=== PATIENT | male | born 1990 | race Caucasian/White ===

== ENCOUNTER 2021-02-07 12:47 | Inpatient (IN) | payer BC ==
[2021-02-07] MEDS ORDERED: Sodium Chloride 0.9% 10 ML Syringe FLUSH PRN (13:27)
[2021-02-07] MEDS ORDERED: Ibuprofen 600 MG Tab PO ONE (13:27)
--- NOTE | 2021-02-07 13:37 | EDM.PDOC ---
ED HPI GENERAL MEDICAL PROBLEM - General Chief Complaint: Respiratory Problem Stated Complaint: COVID+ SOB Time Seen by Provider: 02/07/21 13:02 Source of Information: Reports: Patient History Limitations: Reports: No Limitations - History of Present Illness INITIAL COMMENTS - FREE TEXT/NARRATIVE: 30-year-old male presents the emergency department with complaints of a cough with approximately the last 2 weeks. He states he went to the walk-in clinic 4 days ago and was diagnosed with Covid. He states at that time he was started on an albuterol inhaler as well as prednisone to be taken daily. He states the cough and shortness of breath and body aches have progressively gotten worse. He also complains of nausea however he has not had any vomiting. Appetite has been decreased. Denies any urinary symptoms. Has been taking Tylenol for his fever and body aches. Last dose was taken around noon today. Denies any smoking history and states he is otherwise healthy. He does not take any prescription medications. Generalized Pain Score (Numeric/FACES): 4 - Related Data Allergies Allergy/AdvReac Type Severity Reaction Status Date / Time No Known Allergies Allergy Verified 02/07/21 13:02 Home Meds: Home Meds Albuterol [Proventil HFA] 1 - 2 puff INH ASDIRECTED PRN 02/07/21 [History] Aspirin [Ecotrin EC] 325 mg PO DAILY #20 tab.ec 02/11/21 [Rx] Cholecalciferol (Vitamin D3) [Vitamin D3] 5,000 unit PO DAILY #20 cap 02/11/21 [Rx] Zinc Sulfate [Zincate] 220 mg PO DAILY #20 cap 02/11/21 [Rx] dexAMETHasone [Dexamethasone] 6 mg PO DAILY #5 tablet 02/11/21 [Rx] Past Medical History HEENT History: Reports: Impaired Vision Other HEENT History: wears eyeglasses. Respiratory History: Reports: Other (See Below) Other Respiratory History: COVID - Infectious Disease History Infectious Disease History: Reports: Chicken Pox, Novel Coronavirus Social & Family History - Tobacco Use Tobacco Use Status *Q: Never Tobacco User Second Hand Smoke Exposure: No - Caffeine Use Caffeine Use: Reports: None - Recreational Drug Use Recreational Drug Use: No ED ROS GENERAL - Review of Systems Review Of Systems: Comprehensive ROS is negative, except as noted in HPI. ED EXAM, GENERAL - Physical Exam Exam: See Below Exam Limited By: No Limitations General Appearance: Alert, WD/WN, Mild Distress Ears: Normal External Exam, Hearing Grossly Normal Nose: Normal Inspection Throat/Mouth: Normal Inspection, Normal Lips, Normal Voice, No Airway Compromise Head: Atraumatic Neck: Normal Inspection, Supple Respiratory/Chest: No Accessory Muscle Use, Respiratory Distress, Decreased Breath Sounds, Crackles (Right middle and lower lobe and left lower lobe) Cardiovascular: Normal Peripheral Pulses, Regular Rate, Rhythm, No Edema, No Murmur Peripheral Pulses: 2+: Radial (L), Radial (R) GI/Abdominal: Normal Bowel Sounds, Soft, Non-Tender, No Distention (Male) Exam: Deferred Rectal (Males) Exam: Deferred Back Exam: Normal Inspection Extremities: Normal Inspection, Normal Range of Motion, Non-Tender, No Pedal Edema, Normal Capillary Refill Neurological: Alert, Oriented, Normal Cognition Psychiatric: Normal Affect, Normal Mood Skin Exam: Warm, Intact, No Rash, Diaphoretic. No: Normal Color (Flushed) Lymphatic: No Adenopathy #1 Interpretation EKG Date: 02/07/21 Time: 13:02 Rhythm: NSR Rate (Beats/Min): 113 [place]: Normal P-Wave: Present QRS: Normal ST-T: Normal QT: Normal Comparison: NA - No Prior EKG EKG Interpretation Comments: Per Dr. Alas interpretation: Sinus tachycardia at 113 bpm; RSR prime in V1 or V2, probable normal variant Course - Vital Signs Text/Narrative:: As stated above, patient presents with worsening Covid symptoms. States was diagnosed 4 days ago however has had symptoms for 2 weeks time. Physical exam reveals a ill-appearing obese male. Cheeks are flushed. He is on 2 L of oxygen per nasal cannula with O2 saturations at 93%. O2 saturations at the time of triage were 86% on room air. Lung sounds reveal crackles noted to the right middle and lower lobe as well as the left lower lobe. Patient has a paroxysmal nonproductive cough. Will obtain lab studies to include a CBC, CMP, C-reactive protein, magnesium, and a D-dimer. We will also obtain a portable chest x-ray and an EKG. Will medicate the patient with ibuprofen 600 mg for fever as it was 100.0 at the time of my exam. Patient is tachycardic with a heart rate of 130 likely due to fever and tachypneic with respiratory rate of 32. Last Recorded V/S: Last Vital Signs Temp 98.2 F 02/11/21 06:10 Pulse 77 02/11/21 06:10 Resp 18 02/11/21 06:10 BP 122/62 02/11/21 06:10 Pulse Ox 91 L 02/11/21 06:10 - Orders/Labs/Meds Orders: Medication Orders Acetaminophen (Acetaminophen 325 Mg Tab) 650 mg PO Q4H PRN PRN Reason: Pain (Mild 1-3)/fever Last Admin: 02/09/21 12:32 Dose: 650 mg Documented by: ARAMIS Albuterol (Albuterol 6.7 Gm Inhaler) 0 gm INH ASDIRECTED PRN PRN Reason: Wheezing Albuterol/Ipratropium (Albuterol/Ipratropium 3.0-0.5 Mg/3 Ml Neb Soln) 3 ml NEB Q4HRRT PRN PRN Reason: Shortness of Breath Last Admin: 02/10/21 14:29 Dose: 3 ml Documented by: Admin: 02/10/21 09:54 Dose: 3 ml Documented by: Admin: 02/09/21 16:45 Dose: 3 ml Documented by: Admin: 02/09/21 09:23 Dose: 3 ml Documented by: Admin: 02/08/21 20:28 Dose: 3 ml Documented by: Admin: 02/08/21 16:07 Dose: 3 ml Documented by: Admin: 02/07/21 20:22 Dose: 3 ml Documented by: GREGORIA Ascorbic Acid (Ascorbic Acid 500 Mg Tab) 500 mg PO BID FRANCISCO J Last Admin: 02/11/21 08:56 Dose: 500 mg Documented by: Admin: 02/10/21 21:19 Dose: 500 mg Documented by: Admin: 02/10/21 09:30 Dose: 500 mg Documented by: Admin: 02/09/21 22:19 Dose: 500 mg Documented by: Admin: 02/09/21 08:53 Dose: 500 mg Documented by: Admin: 02/08/21 22:07 Dose: 500 mg Documented by: Admin: 02/08/21 10:20 Dose: 500 mg Documented by: Admin: 02/07/21 20:38 Dose: 500 mg Documented by: IRIS Aspirin (Aspirin 325 Mg Tab.Ec) 325 mg PO DAILY [facility] Last Admin: 02/11/21 09:42 Dose: 325 mg Documented by: ARAMIS Benzonatate (Benzonatate 100 Mg Cap) 200 mg PO Q8H PRN PRN Reason: Cough Last Admin: 02/07/21 20:38 Dose: 200 mg Documented by: IIRS Cholecalciferol (Cholecalciferol (Vitamin D3) 5,000 Unit Cap) 5,000 unit PO DAILY [facility] Last Admin: 02/11/21 08:56 Dose: 5,000 unit Documented by: Admin: 02/10/21 09:30 Dose: 5,000 unit Documented by: Admin: 02/09/21 08:53 Dose: 5,000 unit Documented by: Admin: 02/08/21 11:58 Dose: 5,000 unit Documented by: AMELIA Dexamethasone (Dexamethasone 4 Mg Tab) 6 mg PO DAILY [facility] Stop: 02/16/21 09:01 Last Admin: 02/11/21 08:56 Dose: 6 mg Documented by: ARAMIS Enoxaparin Sodium (Enoxaparin 40 Mg/0.4 Ml Syringe) 40 mg SUBCUT DAILY [facility] Last Admin: 02/11/21 08:59 Dose: Not Given Documented by: Admin: 02/10/21 09:30 Dose: 40 mg Documented by: Admin: 02/09/21 08:54 Dose: 40 mg Documented by: Admin: 02/08/21 10:21 Dose: 40 mg Documented by: SHALA Famotidine (Famotidine 20 Mg Tab) 20 mg PO BID [facility] Last Admin: 02/11/21 08:56 Dose: 20 mg Documented by: Admin: 02/10/21 21:19 Dose: 20 mg Documented by: Admin: 02/10/21 09:30 Dose: 20 mg Documented by: Admin: 02/09/21 22:18 Dose: 20 mg Documented by: Admin: 02/09/21 08:53 Dose: 20 mg Documented by: Admin: 02/08/21 22:07 Dose: 20 mg Documented by: Admin: 02/08/21 10:19 Dose: 20 mg Documented by: Admin: 02/07/21 20:38 Dose: 20 mg Documented by: IRIS Guaifenesin (Guaifenesin 600 Mg Tab.Er) 600 mg PO BID [facility] Last Admin: 02/11/21 08:56 Dose: 600 mg Documented by: Admin: 02/10/21 21:19 Dose: 600 mg Documented by: Admin: 02/10/21 09:30 Dose: 600 mg Documented by: Admin: 02/09/21 22:19 Dose: 600 mg Documented by: Admin: 02/09/21 08:53 Dose: 600 mg Documented by: Admin: 02/08/21 22:08 Dose: 600 mg Documented by: Admin: 02/08/21 10:20 Dose: 600 mg Documented by: Admin: 02/07/21 20:38 Dose: 600 mg Documented by: IRIS Guaifenesin/Dextromethorphan (Guaifenesin/Dextromethorphan 100-10 Mg/5 Ml Soln 5 Ml Cup) 10 ml PO TID@0700,1400,2100 [facility] Admin: 02/11/21 06:06 Dose: 10 ml Documented by: Admin: 02/10/21 21:19 Dose: 10 ml Documented by: Admin: 02/10/21 14:16 Dose: 10 ml Documented by: Admin: 02/10/21 06:30 Dose: 10 ml Documented by: Admin: 02/09/21 22:20 Dose: 10 ml Documented by: Admin: 02/09/21 13:31 Dose: Not Given Documented by: Admin: 02/09/21 12:32 Dose: 10 ml Documented by: Admin: 02/09/21 06:59 Dose: 10 ml Documented by: Admin: 02/08/21 22:08 Dose: 10 ml Documented by: Admin: 02/08/21 14:40 Dose: 10 ml Documented by: FAHYHEA Remdesivir 100 mg/ Sodium (Chloride) 250 mls @ 250 mls/hr IV ONETIME ONE Stop: 02/11/21 12:59 Melatonin (Melatonin 3 Mg Tab) 6 mg PO BEDTIME PRN PRN Reason: Insomnia Last Admin: 02/10/21 21:19 Dose: 6 mg Documented by: Admin: 02/08/21 22:13 Dose: 6 mg Documented by: Admin: 02/07/21 20:38 Dose: 6 mg Documented by: IRIS Temazepam (Temazepam 15 Mg Cap) 15 mg PO BEDTIME PRN PRN Reason: Insomnia Last Admin: 02/09/21 22:24 Dose: 15 mg Documented by: KEISHA Zinc Sulfate (Zinc Sulfate 220 Mg Cap) 220 mg PO DAILY FRANCISCO J Last Admin: 02/11/21 08:56 Dose: 220 mg Documented by: Admin: 02/10/21 09:30 Dose: 220 mg Documented by: Admin: 02/09/21 08:53 Dose: 220 mg Documented by: Admin: 02/08/21 10:20 Dose: 220 mg Documented by: SHALA Labs: Laboratory Tests 02/07/21 02/07/21 02/07/21 Range/Units 14:00 14:00 14:00 WBC 4.71 (4.23-9.07) K/mm3 RBC 4.65 (4.63-6.08) M/mm3 Hgb 14.0 D (13.7-17.5) gm/dl Hct 42.4 (40.1-51.0) % MCV 91.2 D (79.0-92.2) fl MCH 30.1 (25.7-32.2) pg MCHC 33.0 (32.2-35.5) g/dl RDW Std Deviation 42.7 (35.1-43.9) fL Plt Count 166 (163-337) K/mm3 MPV 11.1 (9.4-12.3) fl Neut % (Auto) 80.7 H (34.0-67.9) % Lymph % (Auto) 11.3 L (21.8-53.1) % [place] % (Auto) 7.2 (5.3-12.2) % Eos % (Auto) 0 L (0.8-7.0) Baso % (Auto) 0.2 (0.1-1.2) % Neut # (Auto) 3.80 (1.78-5.38) K/mm3 Lymph # (Auto) 0.53 L (1.32-3.57) K/mm3 [place] # (Auto) 0.34 (0.30-0.82) K/mm3 Eos # (Auto) 0.00 L (0.04-0.54) K/mm3 Baso # (Auto) 0.01 (0.01-0.08) K/mm3 D-Dimer, Quantitative 1.61 H (0.19-0.50) mg/L Sodium 138 (136-145) mEq/L Potassium 3.6 (3.5-5.1) mEq/L Chloride 101 (98-107) mEq/L Carbon Dioxide 28 D (21-32) mEq/L Anion Gap 12.6 (5-15) BUN 16 (7-18) mg/dL Creatinine 1.2 (0.7-1.3) mg/dL Est Cr Clr Drug Dosing 93.78 mL/min Estimated GFR (MDRD) > 60 (>60) mL/min BUN/Creatinine Ratio 13.3 L (14-18) Glucose 99 (70-99) mg/dL Calcium 8.8 (8.5-10.1) mg/dL Magnesium 1.6 L (1.8-2.4) mg/dL Total Bilirubin 0.4 (0.2-1.0) mg/dL AST 24 (15-37) U/L ALT 24 (16-63) U/L Alkaline Phosphatase 54 (46-116) U/L C-Reactive Protein 17.2 H* (<1.0) mg/dL Total Protein 7.3 (6.4-8.2) g/dl Albumin 3.1 L (3.4-5.0) g/dl Globulin 4.2 gm/dL Albumin/Globulin Ratio 0.7 L (1-2) Meds: Medications Generic Name Dose Route Start Last Admin Trade Name Freq PRN Reason Stop Dose Admin Acetaminophen 650 mg 02/07/21 16:27 02/09/21 12:32 Acetaminophen 325 Mg Tab PO 650 mg Q4H PRN Administration Pain (Mild 1-3)/fever Albuterol 0 gm 02/07/21 16:34 Albuterol 6.7 Gm Inhaler INH ASDIRECTED PRN Wheezing Albuterol/Ipratropium 3 ml 02/07/21 16:36 02/10/21 14:29 Albuterol/Ipratropium 3.0-0.5 Mg/3 Ml Neb Soln NEB 3 ml Q4HRRT PRN Administration Shortness of Breath Ascorbic Acid 500 mg 02/07/21 21:00 02/11/21 08:56 Ascorbic Acid 500 Mg Tab PO 500 mg BID FRANCISCO J Administration Aspirin 325 mg 02/11/21 09:15 02/11/21 09:42 Aspirin 325 Mg Tab.Ec PO 325 mg DAILY FRANCISCO J Administration Benzonatate 200 mg 02/07/21 16:36 02/07/21 20:38 Benzonatate 100 Mg Cap PO 200 mg Q8H PRN Administration Cough Cholecalciferol 5,000 unit 02/08/21 11:15 02/11/21 08:56 Cholecalciferol (Vitamin D3) 5,000 Unit Cap PO 5,000 unit DAILY FRANCISCO J Administration Dexamethasone 6 mg 02/11/21 09:00 02/11/21 08:56 Dexamethasone 4 Mg Tab PO 02/16/21 09:01 6 mg DAILY FRANCISCO J Administration Enoxaparin Sodium 40 mg 02/08/21 09:00 02/11/21 08:59 Enoxaparin 40 Mg/0.4 Ml Syringe SUBCUT Not Given DAILY FRANCISCO J Famotidine 20 mg 02/07/21 21:00 02/11/21 08:56 Famotidine 20 Mg Tab PO 20 mg BID FRANCISCO J Administration Guaifenesin 600 mg 02/07/21 21:00 02/11/21 08:56 Guaifenesin 600 Mg Tab.Er PO 600 mg BID FRANCISCO J Administration Guaifenesin/Dextromethorphan 10 ml 02/08/21 14:00 02/11/21 06:06 Guaifenesin/Dextromethorphan 100-10 Mg/5 Ml Soln 5 Ml Cup PO 10 ml TID@0700,1400,2100 FRANCISCO J Administration Remdesivir 100 mg/ Sodium 250 mls @ 250 mls/hr 02/11/21 12:00 Chloride IV 02/11/21 12:59 ONETIME ONE Melatonin 6 mg 02/07/21 21:00 02/10/21 21:19 Melatonin 3 Mg Tab PO 6 mg BEDTIME PRN Administration Insomnia Temazepam 15 mg 02/09/21 09:56 02/09/21 22:24 Temazepam 15 Mg Cap PO 15 mg BEDTIME PRN Administration Insomnia Zinc Sulfate 220 mg 02/08/21 09:00 02/11/21 08:56 Zinc Sulfate 220 Mg Cap PO 220 mg DAILY FRANCISCO J Administration Discontinued Medications Generic Name Dose Route Start Last Admin Trade Name Freq PRN Reason Stop Dose Admin Dexamethasone 6 mg 02/07/21 17:00 02/10/21 09:30 Dexamethasone 4 Mg Tab PO 02/16/21 09:01 6 mg DAILY FRANCISCO J Administration Dexamethasone 6 mg 02/11/21 12:00 Dexamethasone 4 Mg Tab PO 02/16/21 09:01 DAILY FRANCISCO J Remdesivir 200 mg/ Sodium 250 mls @ 250 mls/hr 02/07/21 17:00 02/07/21 18:00 Chloride IV 02/07/21 17:59 250 mls/hr ONETIME ONE Administration Remdesivir 100 mg/ Sodium 250 mls @ 250 mls/hr 02/08/21 17:00 02/10/21 16:58 Chloride IV 02/11/21 17:59 250 mls/hr Q24H FRANCISCO J Administration Magnesium Sulfate 2 gm/ Premix 50 mls @ 25 mls/hr 02/08/21 16:00 02/08/21 16:11 IV 02/08/21 17:59 25 mls/hr ONETIME ONE Administration Ibuprofen 600 mg 02/07/21 13:27 02/07/21 13:45 Ibuprofen 600 Mg Tab PO 02/07/21 13:28 600 mg ONETIME ONE Administration Sodium Chloride 10 ml 02/07/21 13:27 02/07/21 14:05 Sodium Chloride 0.9% 10 Ml Syringe FLUSH 10 ml ASDIRECTED PRN Administration Keep Vein Open - Re-Assessments/Exams Free Text/Narrative Re-Assessment/Exam: 02/07/21 14:40 Radiologist impression frontal view of the chest: Patchy areas of increased density are scattered throughout both sides of the chest. Heart size and mediastinum are normal. No discrete osseous abnormality is appreciated. Impression: 1. Findings suspicious for diffuse Covid pneumonia. 02/07/21 14:55 Hematology reveals a WBC of 4.71, hemoglobin 14.0, hematocrit 42.4, platelet count 166 Coagulation reveals a D-dimer of 1.61 Chemistry reveals a sodium of 138, potassium 3.6, anion gap 12.6, BUN 16, creat inine 1.2, GFR greater than 60, magnesium 1.6, C-reactive protein 17.2 02/07/21 15:00 To the patient's worsening symptoms and oxygen needs I do feel the patient needs to be admitted in the hospital. I have spoken to the hospitalist, Dr. Rocha and he agrees to accept the patient into his service. Patient is agreeable to this plan. Departure - Departure Time of Disposition: 16:05 Disposition: Admitted As Inpatient 67 Condition: Good Clinical Impression: Pneumonia due to severe acute respiratory syndrome coronavirus 2 (SARS-CoV-2) - Discharge Information Sepsis Event Note (ED) - Evaluation Sepsis Screening Result: No Definite Risk
--- NOTE | 2021-02-07 13:55 | CR ---
Chest: Frontal view of the chest was obtained. Comparison: No prior chest imaging is available. Patchy areas of increased density are scattered throughout both sides of the chest. Heart size and mediastinum are normal. No discrete osseous abnormality is appreciated. Impression: 1. Findings suspicious for diffuse COVID pneumonia. Diagnostic code #3
[2021-02-07] MEDS ORDERED: Acetaminophen 325 MG Tab PO PRN (16:27)
[2021-02-07] MEDS ORDERED: Albuterol 6.7 GM Inhaler INH PRN (16:34)
[2021-02-07] MEDS ORDERED: Benzonatate 100 MG Cap PO PRN (16:36)
--- NOTE | 2021-02-07 16:40 | PCM.HP.2 ---
H&P History of Present Illness - General Date of Service: 02/07/21 Admit Problem/Dx: Admission Diagnosis/Problem Admission Diagnosis/Problem Hypoxemia - History of Present Illness Initial Comments - Free Text/Narative: 30-year-old male with history of cough and body aches for last 2 weeks presents to the emergency department with worsening shortness of breath, cough, and fever. Patient was diagnosed with COVID-19 on January after having worsening shortness of breath and cough. He was placed on albuterol and prednisone as an outpatient. Patient is unvaccinated. As stated above he star andrea having symptoms 2 weeks ago progressively worsened to the point of them being severe today. He has had some nausea and decreased appetite but no diarrhea, vomiting, or constipation. He has been using Tylenol for his fever and body aches. He denies any history of tobacco. He occasionally drinks alcohol. No illicit drug use. His was positive for Covid approximately 1 month ago. He has had some decreased sense of smell. On presentation to the emergency department his oxygen saturations were in the mid 80s on room air. He was placed on 2 L nasal cannula and his oxygen saturations did go up to the low 90s. Temperature was 100.0 and he received ibuprofen 600 mg. Chest x-ray was consistent with Covid pneumonia. Initially he was tachycardic and tachypneic. Patient states he improved on oxygen. White count was 4.71, D-dimer 1.6, CRP 17.2, normal renal function and electrolytes except for magnesium of 1.6. Albumin was low at 3.1. Generalized Pain Score (Numeric/FACES): 4 - Related Data Allergies/Adverse Reactions: Allergies Allergy/AdvReac Type Severity Reaction Status Date / Time No Known Allergies Allergy Verified 02/07/21 13:02 Home Medications: Home Meds Albuterol [Proventil HFA] 1 - 2 puff INH ASDIRECTED PRN 02/07/21 [History] predniSONE [Prednisone] 20 mg PO DAILY 02/07/21 [History] Past Medical History HEENT History: Reports: Impaired Vision Other HEENT History: wears eyeglasses. Respiratory History: Reports: Other (See Below) Other Respiratory History: COVID - Infectious Disease History Infectious Disease History: Reports: Chicken Pox, Novel Coronavirus Social & Family History - Tobacco Use Tobacco Use Status *Q: Never Tobacco User Second Hand Smoke Exposure: No - Caffeine Use Caffeine Use: Reports: None - Recreational Drug Use Recreational Drug Use: No H&P Review of Systems - Review of Systems: Review Of Systems: Comprehensive ROS is negative, except as noted in HPI. Exam - Exam Exam: See Below - Vital Signs Vital Signs: Last Vital Signs Temp 97.3 F 02/07/21 16:16 Pulse 88 02/07/21 16:16 Resp 20 02/07/21 16:16 BP 128/66 02/07/21 16:16 Pulse Ox 90 L 02/07/21 16:16 Weight: 252 lb 14.4 oz - Exam Quality Assessment: Supplemental Oxygen General: Alert, Oriented HEENT: Conjunctiva Clear, Mucosa Moist & [place], Nares Patent, Normal Nasal Septum Neck: Supple, Trachea Midline, 2 Lungs: Crackles (Throughout both lung fine worse in the bases). No: Normal Respiratory Effort (Increased rate and effort) Cardiovascular: Regular Rate, Normal S1, Normal S2, Tachycardia GI/Abdominal Exam: Normal Bowel Sounds, Soft, Non-Tender, No Organomegaly, No Distention, No Abnormal Bruit, No Mass Extremities: Normal Inspection, Normal Range of Motion, Non-Tender, No Pedal Edema, Normal Capillary Refill Peripheral Pulses: 2+: Posterior Tibial (L), Posterior Tibial (R), Dorsalis Pedis (L), Dorsalis Pedis (R) Skin: Warm, Dry, Intact Neurological: Cranial Nerves Intact Neuro Extensive - Mental Status: Alert, Oriented x3, Normal Mood/Affect, Normal Cognition, Memory Intact Neuro Extensive - Motor, Sensory, Reflexes: CN II-XII Intact Psychiatric: Alert, Normal Affect, Normal Mood - Patient Data Lab Results Last 24 hrs: Laboratory Results - last 24 hr 02/07/21 02/07/21 02/07/21 Range/Units 14:00 14:00 14:00 WBC 4.71 (4.23-9.07) K/mm3 RBC 4.65 (4.63-6.08) M/mm3 Hgb 14.0 D (13.7-17.5) gm/dl Hct 42.4 (40.1-51.0) % MCV 91.2 D (79.0-92.2) fl MCH 30.1 (25.7-32.2) pg MCHC 33.0 (32.2-35.5) g/dl RDW Std Deviation 42.7 (35.1-43.9) fL Plt Count 166 (163-337) K/mm3 MPV 11.1 (9.4-12.3) fl Neut % (Auto) 80.7 H (34.0-67.9) % Lymph % (Auto) 11.3 L (21.8-53.1) % [place] % (Auto) 7.2 (5.3-12.2) % Eos % (Auto) 0 L (0.8-7.0) Baso % (Auto) 0.2 (0.1-1.2) % Neut # (Auto) 3.80 (1.78-5.38) K/mm3 Lymph # (Auto) 0.53 L (1.32-3.57) K/mm3 [place] # (Auto) 0.34 (0.30-0.82) K/mm3 Eos # (Auto) 0.00 L (0.04-0.54) K/mm3 Baso # (Auto) 0.01 (0.01-0.08) K/mm3 D-Dimer, Quantitative 1.61 H (0.19-0.50) mg/L Sodium 138 (136-145) mEq/L Potassium 3.6 (3.5-5.1) mEq/L Chloride 101 (98-107) mEq/L Carbon Dioxide 28 D (21-32) mEq/L Anion Gap 12.6 (5-15) BUN 16 (7-18) mg/dL Creatinine 1.2 (0.7-1.3) mg/dL Est Cr Clr Drug Dosing 93.78 mL/min Estimated GFR (MDRD) > 60 (>60) mL/min BUN/Creatinine Ratio 13.3 L (14-18) Glucose 99 (70-99) mg/dL Calcium 8.8 (8.5-10.1) mg/dL Magnesium 1.6 L (1.8-2.4) mg/dL Total Bilirubin 0.4 (0.2-1.0) mg/dL AST 24 (15-37) U/L ALT 24 (16-63) U/L Alkaline Phosphatase 54 (46-116) U/L C-Reactive Protein 17.2 H* (<1.0) mg/dL Total Protein 7.3 (6.4-8.2) g/dl Albumin 3.1 L (3.4-5.0) g/dl Globulin 4.2 gm/dL Albumin/Globulin Ratio 0.7 L (1-2) Result Diagrams: 02/07/21 14:00 02/07/21 14:00 Sepsis Event Note - Evaluation Sepsis Screening Result: No Definite Risk - Focused Exam Vital Signs: Vital Signs Temp Temp Pulse Pulse Resp BP BP 02/07/21 16:16 97.3 F 88 20 128/66 02/07/21 16:05 97.8 F 22 H 122/73 02/07/21 13:45 99.1 F 02/07/21 12:55 99.7 F 130 H 32 H 121/74 Pulse Ox 02/07/21 16:16 90 L 02/07/21 16:05 98 02/07/21 13:45 02/07/21 12:55 87 L - Problem List (1) Hypoxemia SNOMED Code(s): 043382703 ICD Code: R09.02 - HYPOXEMIA Status: Acute Current Visit: Yes (2) Pneumonia due to severe acute respiratory syndrome coronavirus 2 (SARS-CoV-2) SNOMED Code(s): 663811634432093721 ICD Code: U07.1 - COVID-19; J12.82 - PNEUMONIA DUE TO CORONAVIRUS DISEASE 2019 Status: Acute Current Visit: Yes Problem List Initiated/Reviewed/Updated: Yes Orders Last 24hrs: Active Orders 24 hr Category Date Time Status Admission Status [Patient Status] [ADT] Routine ADT 02/07/21 15:27 Active Nurse Communication: Isolation [RC] ASDIRECTED Care 02/07/21 16:30 Ordered Oxygen Therapy [RC] PRN Care 02/07/21 16:28 Ordered Positioning, Patient [RC] ASDIRECTED Care 02/07/21 16:29 Ordered RT Aerosol Therapy [RC] ASDIRECTED Care 02/07/21 16:36 Ordered RT Post Treatment Assessment [RC] Click to Edit Care 02/07/21 16:35 Ordered RT Pre-Treatment Assessment [RC] Click to Edit Care 02/07/21 16:35 Ordered Up ad Misty [RC] ASDIRECTED Care 02/07/21 16:27 Ordered VTE/DVT Education [RC] PER UNIT ROUTINE Care 02/07/21 16:28 Ordered Vital Signs [RC] Q4H Care 02/07/21 16:28 Ordered Regular Diet [DIET] Diet 02/07/21 Dinner Ordered C-REACTIVE PROTEIN [CHEM] AM Lab 02/08/21 05:11 Ordered C-REACTIVE PROTEIN [CHEM] AM Lab 02/09/21 05:11 Ordered C-REACTIVE PROTEIN [CHEM] AM Lab 02/10/21 05:11 Ordered C-REACTIVE PROTEIN [CHEM] AM Lab 02/11/21 05:11 Ordered CBC WITH AUTO DIFF [HEME] AM Lab 02/08/21 05:11 Ordered CBC WITH AUTO DIFF [HEME] AM Lab 02/09/21 05:11 Ordered CBC WITH AUTO DIFF [HEME] AM Lab 02/10/21 05:11 Ordered CBC WITH AUTO DIFF [HEME] AM Lab 02/11/21 05:11 Ordered CMP [COMPREHENSIVE METABOLIC PN,CMP] [CHEM] AM Lab 02/08/21 05:11 Ordered CMP [COMPREHENSIVE METABOLIC PN,CMP] [CHEM] AM Lab 02/09/21 05:11 Ordered CMP [COMPREHENSIVE METABOLIC PN,CMP] [CHEM] AM Lab 02/10/21 05:11 Ordered CMP [COMPREHENSIVE METABOLIC PN,CMP] [CHEM] AM Lab 02/11/21 05:11 Ordered DD [D-DIMER QUANTITATIVE] [COAG] Q48H Lab 02/09/21 05:11 Ordered DD [D-DIMER QUANTITATIVE] [COAG] Q48H Lab 02/11/21 05:11 Ordered MAGNESIUM [CHEM] AM Lab 02/08/21 05:11 Ordered MAGNESIUM [CHEM] AM Lab 02/09/21 05:11 Ordered MAGNESIUM [CHEM] AM Lab 02/10/21 05:11 Ordered MAGNESIUM [CHEM] AM Lab 02/11/21 05:11 Ordered PHOSPHORUS [CHEM] AM Lab 02/08/21 05:11 Ordered Acetaminophen [TylenoL] Med 02/07/21 16:27 Ordered 650 mg PO Q4H PRN Albuterol [Proventil HFA] Med 02/07/21 16:34 Ordered 2 puff INH ASDIRECTED PRN Albuterol/Ipratropium [DuoNeb 3.0-0.5 MG/3 ML] Med 02/07/21 16:36 Ordered 3 ml NEB Q4HRRT PRN Benzonatate [Tessalon Perles] Med 02/07/21 16:36 Ordered 200 mg PO Q8H PRN Enoxaparin [Lovenox] Med 02/08/21 09:00 Ordered 40 mg SUBCUT DAILY Famotidine [Pepcid] Med 02/07/21 21:00 Ordered 20 mg PO BID Melatonin Med 02/07/21 16:37 Ordered 6 mg PO BEDTIME PRN Remdesivir 100 mg Med 02/08/21 16:30 Ordered Sodium Chloride 0.9% [Normal Saline] 100 ml IV Q24H Remdesivir 200 mg Med 02/07/21 16:27 Ordered Sodium Chloride 0.9% [Normal Saline] 250 ml IV ONETIME dexAMETHasone Med 02/07/21 16:30 Ordered 6 mg PO DAILY Isolation [COMM] Stat Oth 02/07/21 16:28 Ordered Saline Lock Insert [OM.PC] Stat Oth 02/07/21 13:27 Ordered Resuscitation Status Routine Resus Stat 02/07/21 16:27 Ordered Medication Orders Acetaminophen (Acetaminophen 325 Mg Tab) 650 mg PO Q4H PRN PRN Reason: Pain (Mild 1-3)/fever Albuterol (Albuterol 6.7 Gm Inhaler) gm INH ASDIRECTED PRN PRN Reason: Wheezing Albuterol/Ipratropium (Albuterol/Ipratropium 3.0-0.5 Mg/3 Ml Neb Soln) 3 ml NEB Q4HRRT PRN PRN Reason: Shortness of Breath Benzonatate (Benzonatate 100 Mg Cap) 200 mg PO Q8H PRN PRN Reason: Cough Dexamethasone (Dexamethasone 4 Mg Tab) 6 mg PO DAILY FRANCISCO J Stop: 02/16/21 09:01 Enoxaparin Sodium (Enoxaparin 40 Mg/0.4 Ml Syringe) 40 mg SUBCUT DAILY FRANCISCO J Famotidine (Famotidine 20 Mg Tab) 20 mg PO BID FRANCISCO J Remdesivir 200 mg/ Sodium (Chloride) 250 mls @ 250 mls/hr IV ONETIME ONE Stop: 02/07/21 16:28 Remdesivir 100 mg/ Sodium (Chloride) 100 mls @ 100 mls/hr IV Q24H [facility]ANCISCO J Stop: 02/11/21 17:29 Melatonin (Melatonin 3 Mg Tab) 6 mg PO BEDTIME PRN PRN Reason: Insomnia Assessment/Plan Comment:: 30-year-old with approximate 2-week history of respiratory infection consistent with COVID-19. Diagnosed on January Pneumonia secondary to COVID-19 Respiratory failure/hypoxemia Moderate to severe COVID-19 requiring 2 L nasal cannula to keep his oxygen saturations in the low 90s. Patient was unvaccinated for COVID-19. Risk factors include obesity. Started on albuterol and prednisone on January WBC 4.71, hemoglobin 14.0, platelets 166, D-dimer 1.61, magnesium 1.6, BUN 16, creatinine 1.2, potassium 3.6, sodium 138, CRP 17, Hypomagnesemia Magnesium 1.6 likely secondary to poor oral intake Plan Admit to medical floor FiO2 to keep SPO2 between 88 and 94% Start remdesivir and dexamethasone Follow daily Covid labs Routine COVID-19 inpatient protocol to include proning, I-S, respiratory therapy, etc. Mucinex, Tessalon Perles, Pepcid, vitamin C, zinc, check vitamin D D level and replace as appropriate Magnesium supplementation and follow-up in the morning VTE prophylaxis with Lovenox CODE STATUS: Full code Anticipated length of stay 4 to 5 days. - Mortality Measure Prognosis:: Good
[2021-02-07] MEDS: Dexamethasone 4 MG Tab PO SCH (16:59)
[2021-02-07] MEDS ORDERED: REMDESIVIR 200 MG in Sodium Chloride 0.9% 250 ML IV ONE (17:00)
[2021-02-07] MEDS: Albuterol/Ipratropium 3.0-0.5 MG/3 ML Neb Soln NEB PRN (20:22)
[2021-02-07] MEDS: Famotidine 20 MG Tab PO SCH (20:38)
[2021-02-07] MEDS: Ascorbic Acid 500 MG Tab PO SCH (20:38)
[2021-02-07] MEDS: guaiFENesin 600 MG Tab.ER PO SCH (20:38)
[2021-02-07] MEDS: Melatonin 3 MG Tab PO PRN (20:38)
--- NOTE | 2021-02-08 08:07 | PCM.PN ---
- General Info Date of Service: 02/08/21 Admission Dx/Problem (Free Text): Admission Diagnosis/Problem Admission Diagnosis/Problem Hypoxemia Functional Status: Reports: Pain Controlled, Tolerating Diet, Ambulating, Urinating. Denies: New Symptoms - Review of Systems General: Reports: No Symptoms, Weakness, Fatigue, Malaise. Denies: Fever, Chills HEENT: Reports: No Symptoms. Denies: Headaches, Sore Throat Pulmonary: Reports: Shortness of Breath, Cough, Sputum. Denies: Pleuritic Chest Pain, Wheezing Cardiovascular: Reports: Dyspnea on Exertion. Denies: Chest Pain, Palpitations, Edema Gastrointestinal: Reports: No Symptoms. Denies: Abdominal Pain, Constipation, Diarrhea, Nausea, Vomiting Genitourinary: Reports: No Symptoms. Denies: Pain Musculoskeletal: Reports: No Symptoms Skin: Reports: No Symptoms. Denies: Cyanosis Neurological: Reports: No Symptoms. Denies: Confusion, Dizziness, Headache, Numbness, Pre-Existing Deficit, Seizure, Syncope, Tingling, Difficulty Walking, Gait Disturbance Psychiatric: Reports: No Symptoms - Patient Data Vitals - Most Recent: Last Vital Signs Temp 97.9 F 02/08/21 04:48 Pulse 70 02/08/21 04:48 Resp 20 02/08/21 04:48 BP 118/69 02/08/21 04:48 Pulse Ox 91 L 02/08/21 04:48 Weight - Most Recent: 248 lb I&O - Last 24 Hours: Intake & Output 02/07/21 02/08/21 02/08/21 22:59 06:59 14:59 Intake Total 240 650 Balance 240 650 Lab Results Last 24 Hours: Laboratory Results - last 24 hr 02/07/21 02/07/21 02/07/21 Range/Units 14:00 14:00 14:00 WBC 4.71 (4.23-9.07) K/mm3 RBC 4.65 (4.63-6.08) M/mm3 Hgb 14.0 D (13.7-17.5) gm/dl Hct 42.4 (40.1-51.0) % MCV 91.2 D (79.0-92.2) fl MCH 30.1 (25.7-32.2) pg MCHC 33.0 (32.2-35.5) g/dl RDW Std Deviation 42.7 (35.1-43.9) fL Plt Count 166 (163-337) K/mm3 MPV 11.1 (9.4-12.3) fl Neut % (Auto) 80.7 H (34.0-67.9) % Lymph % (Auto) 11.3 L (21.8-53.1) % [place] % (Auto) 7.2 (5.3-12.2) % Eos % (Auto) 0 L (0.8-7.0) Baso % (Auto) 0.2 (0.1-1.2) % Neut # (Auto) 3.80 (1.78-5.38) K/mm3 Lymph # (Auto) 0.53 L (1.32-3.57) K/mm3 [place] # (Auto) 0.34 (0.30-0.82) K/mm3 Eos # (Auto) 0.00 L (0.04-0.54) K/mm3 Baso # (Auto) 0.01 (0.01-0.08) K/mm3 Manual Slide Review D-Dimer, Quantitative 1.61 H (0.19-0.50) mg/L Sodium 138 (136-145) mEq/L Potassium 3.6 (3.5-5.1) mEq/L Chloride 101 (98-107) mEq/L Carbon Dioxide 28 D (21-32) mEq/L Anion Gap 12.6 (5-15) BUN 16 (7-18) mg/dL Creatinine 1.2 (0.7-1.3) mg/dL Est Cr Clr Drug Dosing 93.78 mL/min Estimated GFR (MDRD) > 60 (>60) mL/min BUN/Creatinine Ratio 13.3 L (14-18) Glucose 99 (70-99) mg/dL Calcium 8.8 (8.5-10.1) mg/dL Phosphorus (2.6-4.7) mg/dL Magnesium 1.6 L (1.8-2.4) mg/dL Total Bilirubin 0.4 (0.2-1.0) mg/dL AST 24 (15-37) U/L ALT 24 (16-63) U/L Alkaline Phosphatase 54 (46-116) U/L C-Reactive Protein 17.2 H* (<1.0) mg/dL Total Protein 7.3 (6.4-8.2) g/dl Albumin 3.1 L (3.4-5.0) g/dl Globulin 4.2 gm/dL Albumin/Globulin Ratio 0.7 L (1-2) 02/08/21 02/08/21 Range/Units 05:55 06:05 WBC 4.12 L (4.23-9.07) K/mm3 RBC 4.74 (4.63-6.08) M/mm3 Hgb 14.1 (13.7-17.5) gm/dl Hct 42.6 (40.1-51.0) % MCV 89.9 (79.0-92.2) fl MCH 29.7 (25.7-32.2) pg MCHC 33.1 (32.2-35.5) g/dl RDW Std Deviation 41.9 (35.1-43.9) fL Plt Count 183 (163-337) K/mm3 MPV 11.2 (9.4-12.3) fl Neut % (Auto) 77.4 H (34.0-67.9) % Lymph % (Auto) 12.4 L (21.8-53.1) % [place] % (Auto) 8.3 (5.3-12.2) % Eos % (Auto) 0 L (0.8-7.0) Baso % (Auto) 0.2 (0.1-1.2) % Neut # (Auto) 3.19 (1.78-5.38) K/mm3 Lymph # (Auto) 0.51 L (1.32-3.57) K/mm3 [place] # (Auto) 0.34 (0.30-0.82) K/mm3 Eos # (Auto) 0.00 L (0.04-0.54) K/mm3 Baso # (Auto) 0.01 (0.01-0.08) K/mm3 Manual Slide Review Normal smear D-Dimer, Quantitative (0.19-0.50) mg/L Sodium 138 (136-145) mEq/L Potassium 4.3 (3.5-5.1) mEq/L Chloride 100 (98-107) mEq/L Carbon Dioxide 25 (21-32) mEq/L Anion Gap 17.3 H (5-15) BUN 15 (7-18) mg/dL Creatinine 1.1 (0.7-1.3) mg/dL Est Cr Clr Drug Dosing 102.31 mL/min Estimated GFR (MDRD) > 60 (>60) mL/min BUN/Creatinine Ratio 13.6 L (14-18) Glucose 108 H (70-99) mg/dL Calcium 8.4 L (8.5-10.1) mg/dL Phosphorus 4.9 H (2.6-4.7) mg/dL Magnesium 1.7 L (1.8-2.4) mg/dL Total Bilirubin 0.3 (0.2-1.0) mg/dL AST 25 (15-37) U/L ALT 26 (16-63) U/L Alkaline Phosphatase 53 (46-116) U/L C-Reactive Protein 18.6 H* (<1.0) mg/dL Total Protein 6.5 (6.4-8.2) g/dl Albumin 3.1 L (3.4-5.0) g/dl Globulin 3.4 gm/dL Albumin/Globulin Ratio 0.9 L (1-2) Med Orders - Current: Current Medications Acetaminophen (Acetaminophen 325 Mg Tab) 650 mg PO Q4H PRN PRN Reason: Pain (Mild 1-3)/fever Albuterol (Albuterol 6.7 Gm Inhaler) 0 gm INH ASDIRECTED PRN PRN Reason: Wheezing Albuterol/Ipratropium (Albuterol/Ipratropium 3.0-0.5 Mg/3 Ml Neb Soln) 3 ml NEB Q4HRRT PRN PRN Reason: Shortness of Breath Last Admin: 02/07/21 20:22 Dose: 3 ml Documented by: Ascorbic Acid (Ascorbic Acid 500 Mg Tab) 500 mg PO BID FRANCISCO J Last Admin: 02/07/21 20:38 Dose: 500 mg Documented by: Benzonatate (Benzonatate 100 Mg Cap) 200 mg PO Q8H PRN PRN Reason: Cough Last Admin: 02/07/21 20:38 Dose: 200 mg Documented by: Dexamethasone (Dexamethasone 4 Mg Tab) 6 mg PO DAILY FRANCISCO J Stop: 02/16/21 09:01 Last Admin: 02/07/21 16:59 Dose: 6 mg Documented by: Enoxaparin Sodium (Enoxaparin 40 Mg/0.4 Ml Syringe) 40 mg SUBCUT DAILY [facility] Famotidine (Famotidine 20 Mg Tab) 20 mg PO BID [facility] Last Admin: 02/07/21 20:38 Dose: 20 mg Documented by: Guaifenesin (Guaifenesin 600 Mg Tab.Er) 600 mg PO BID [facility] Last Admin: 02/07/21 20:38 Dose: 600 mg Documented by: Remdesivir 100 mg/ Sodium (Chloride) 250 mls @ 250 mls/hr IV Q24H [facility]ISCO J Stop: 02/11/21 17:59 Melatonin (Melatonin 3 Mg Tab) 6 mg PO BEDTIME PRN PRN Reason: Insomnia Last Admin: 02/07/21 20:38 Dose: 6 mg Documented by: Zinc Sulfate (Zinc Sulfate 220 Mg Cap) 220 mg PO DAILY [facility] Discontinued Medications Remdesivir 200 mg/ Sodium (Chloride) 250 mls @ 250 mls/hr IV ONETIME ONE Stop: 02/07/21 17:59 Last Admin: 02/07/21 18:00 Dose: 250 mls/hr Documented by: Ibuprofen (Ibuprofen 600 Mg Tab) 600 mg PO ONETIME ONE Stop: 02/07/21 13:28 Last Admin: 02/07/21 13:45 Dose: 600 mg Documented by: Sodium Chloride (Sodium Chloride 0.9% 10 Ml Syringe) 10 ml FLUSH ASDIRECTED PRN PRN Reason: Keep Vein Open Last Admin: 02/07/21 14:05 Dose: 10 ml Documented by: - Exam Quality Assessment: Supplemental Oxygen (2L), DVT Prophylaxis. No: Urine Catheter General: Alert, Oriented, Cooperative, No Acute Distress HEENT: Pupils Equal, Pupils Reactive, Mucous Membr. Moist/[place] Neck: Supple, +2 Carotid Pulse wo Bruit Lungs: Normal Respiratory Effort, Decreased Breath Sounds, Crackles. No: Wheezing Cardiovascular: Regular Rate, Regular Rhythm GI/Abdominal Exam: Normal Bowel Sounds, Soft, Non-Tender, No Distention (Male) Exam: Deferred Back Exam: Normal Inspection, Full Range of Motion Extremities: Normal Inspection, Normal Range of Motion, Non-Tender, No Pedal Edema, Normal Capillary Refill Skin: Warm, Dry, Intact Neurological: No New Focal Deficit Psy/Mental Status: Alert, Normal Affect, Normal Mood - Patient Data Lab Results Last 24 hrs: Laboratory Results - last 24 hr 1102/07/21 02/07/21 Range/Units 14:00 14:00 14:00 WBC 4.71 (4.23-9.07) K/mm3 RBC 4.65 (4.63-6.08) M/mm3 Hgb 14.0 D (13.7-17.5) gm/dl Hct 42.4 (40.1-51.0) % MCV 91.2 D (79.0-92.2) fl MCH 30.1 (25.7-32.2) pg MCHC 33.0 (32.2-35.5) g/dl RDW Std Deviation 42.7 (35.1-43.9) fL Plt Count 166 (163-337) K/mm3 MPV 11.1 (9.4-12.3) fl Neut % (Auto) 80.7 H (34.0-67.9) % Lymph % (Auto) 11.3 L (21.8-53.1) % [place] % (Auto) 7.2 (5.3-12.2) % Eos % (Auto) 0 L (0.8-7.0) Baso % (Auto) 0.2 (0.1-1.2) % Neut # (Auto) 3.80 (1.78-5.38) K/mm3 Lymph # (Auto) 0.53 L (1.32-3.57) K/mm3 [place] # (Auto) 0.34 (0.30-0.82) K/mm3 Eos # (Auto) 0.00 L (0.04-0.54) K/mm3 Baso # (Auto) 0.01 (0.01-0.08) K/mm3 Manual Slide Review D-Dimer, Quantitative 1.61 H (0.19-0.50) mg/L Sodium 138 (136-145) mEq/L Potassium 3.6 (3.5-5.1) mEq/L Chloride 101 (98-107) mEq/L Carbon Dioxide 28 D (21-32) mEq/L Anion Gap 12.6 (5-15) BUN 16 (7-18) mg/dL Creatinine 1.2 (0.7-1.3) mg/dL Est Cr Clr Drug Dosing 93.78 mL/min Estimated GFR (MDRD) > 60 (>60) mL/min BUN/Creatinine Ratio 13.3 L (14-18) Glucose 99 (70-99) mg/dL Calcium 8.8 (8.5-10.1) mg/dL Phosphorus (2.6-4.7) mg/dL Magnesium 1.6 L (1.8-2.4) mg/dL Total Bilirubin 0.4 (0.2-1.0) mg/dL AST 24 (15-37) U/L ALT 24 (16-63) U/L Alkaline Phosphatase 54 (46-116) U/L C-Reactive Protein 17.2 H* (<1.0) mg/dL Total Protein 7.3 (6.4-8.2) g/dl Albumin 3.1 L (3.4-5.0) g/dl Globulin 4.2 gm/dL Albumin/Globulin Ratio 0.7 L (1-2) 02/08/21 02/08/21 Range/Units 05:55 06:05 WBC 4.12 L (4.23-9.07) K/mm3 RBC 4.74 (4.63-6.08) M/mm3 Hgb 14.1 (13.7-17.5) gm/dl Hct 42.6 (40.1-51.0) % MCV 89.9 (79.0-92.2) fl MCH 29.7 (25.7-32.2) pg MCHC 33.1 (32.2-35.5) g/dl RDW Std Deviation 41.9 (35.1-43.9) fL Plt Count 183 (163-337) K/mm3 MPV 11.2 (9.4-12.3) fl Neut % (Auto) 77.4 H (34.0-67.9) % Lymph % (Auto) 12.4 L (21.8-53.1) % [place] % (Auto) 8.3 (5.3-12.2) % Eos % (Auto) 0 L (0.8-7.0) Baso % (Auto) 0.2 (0.1-1.2) % Neut # (Auto) 3.19 (1.78-5.38) K/mm3 Lymph # (Auto) 0.51 L (1.32-3.57) K/mm3 [place] # (Auto) 0.34 (0.30-0.82) K/mm3 Eos # (Auto) 0.00 L (0.04-0.54) K/mm3 Baso # (Auto) 0.01 (0.01-0.08) K/mm3 Manual Slide Review Normal smear D-Dimer, Quantitative (0.19-0.50) mg/L Sodium 138 (136-145) mEq/L Potassium 4.3 (3.5-5.1) mEq/L Chloride 100 (98-107) mEq/L Carbon Dioxide 25 (21-32) mEq/L Anion Gap 17.3 H (5-15) BUN 15 (7-18) mg/dL Creatinine 1.1 (0.7-1.3) mg/dL Est Cr Clr Drug Dosing 102.31 mL/min Estimated GFR (MDRD) > 60 (>60) mL/min BUN/Creatinine Ratio 13.6 L (14-18) Glucose 108 H (70-99) mg/dL Calcium 8.4 L (8.5-10.1) mg/dL Phosphorus 4.9 H (2.6-4.7) mg/dL Magnesium 1.7 L (1.8-2.4) mg/dL Total Bilirubin 0.3 (0.2-1.0) mg/dL AST 25 (15-37) U/L ALT 26 (16-63) U/L Alkaline Phosphatase 53 (46-116) U/L C-Reactive Protein 18.6 H* (<1.0) mg/dL Total Protein 6.5 (6.4-8.2) g/dl Albumin 3.1 L (3.4-5.0) g/dl Globulin 3.4 gm/dL Albumin/Globulin Ratio 0.9 L (1-2) Result Diagrams: 02/08/21 05:55 02/08/21 06:05 Sepsis Event Note - Evaluation Sepsis Screening Result: No Definite Risk - Focused Exam Vital Signs: Vital Signs Temp Pulse Resp BP Pulse Ox Pulse Ox 02/08/21 04:48 97.9 F 70 20 118/69 83 L 02/07/21 20:37 100.0 F 97 20 123/56 L 89 L 02/07/21 20:22 95 - Problem List & Annotations (1) Hypoxemia SNOMED Code(s): 422296198 Code(s): R09.02 - HYPOXEMIA Status: Acute Priority: High Current Visit: Yes (2) Pneumonia due to severe acute respiratory syndrome coronavirus 2 (SARS-CoV-2) SNOMED Code(s): 853657503083619625 Code(s): U07.1 - COVID-19; J12.82 - PNEUMONIA DUE TO CORONAVIRUS DISEASE 2019 Status: Acute Priority: High Current Visit: Yes (3) Hypomagnesemia SNOMED Code(s): 537965690 Code(s): E83.42 - HYPOMAGNESEMIA Status: Acute Priority: High Current Visit: Yes (4) Elevated d-dimer SNOMED Code(s): 128586153 Code(s): R79.89 - OTHER SPECIFIED ABNORMAL FINDINGS OF BLOOD CHEMISTRY Status: Acute Priority: High Current Visit: Yes (5) Vitamin D deficiency SNOMED Code(s): 61731053 Code(s): E55.9 - VITAMIN D DEFICIENCY, UNSPECIFIED Status: Acute Priority: High Current Visit: Yes (6) Cough SNOMED Code(s): 40129627 Code(s): R05.9 - COUGH, UNSPECIFIED Status: Acute Priority: High Current Visit: Yes - Problem List Review Problem List Initiated/Reviewed/Updated: Yes - Assessment Assessment:: 02/08/2021 30-year-old male with no past chronic medical history admitted for treatment of his COVID-19 pneumonia. He continues on remdesivir and dexamethasone. He has been complaining of significant cough and is utilizing his Tessalon Perles. We will add Robitussin-DM 3 times daily scheduled. WBC today was 4.12. Hemoglobin 14.1. Platelet 183,000. Neutrophils are 77.4%. Sodium is 138. Potassium is 4.3. Chloride 100. Carbon dioxide 25. Anion gap is 17.3. BUN is 15. Creatinine 1.1. GFR greater than 60. Glucose 108. Calcium is 8.4. Phosphorus is elevated at 4.9. Magnesium is 1.7 and this will be supplemented. Total bilirubin 0.3. AST is 25. ALT is 26. Alkaline phosphatase is 53. CRP is 18.6. Vitamin D is 17.8 and will be supplemented. Remains on 2 L with saturations in the low 90s. Vital signs of otherwise been stable. We will continue current treatment plan. Discharge likely in 3 to 4 days. - Plan Plan:: Pneumonia due to severe acute respiratory syndrome coronavirus 2 (SARS-CoV-2) Hypoxemia Elevated D dimer Cough * Oxygen as needed to keep saturations between 88 and 95% * Remdesivir daily for 5 days * Dexamethasone 6 mg daily for 10 days * I-S/Acapella * RT consultation * Mucinex * Zinc supplementation * As needed Ronni Martinez * Schedule 3 times daily Robitussin-DM * Airborne/contact isolation * Prone whenever able * As needed DuoNebs * As needed albuterol MDI * Supplement vitamin C * Daily labs * Every 48 hour D-dimer * Telemetry * Continuous pulse oximetry Hypomagnesemia * Supplement * Monitor Vitamin D deficiency * Start daily supplementation Code status: Full code PCP: None- needs to establish DVT prophylaxis: Radha Disposition: Patient admitted to the floor for management of COVID-19 pneumonia. Length of stay likely 4 to 5 days pending progress.
[2021-02-08 08:19] LABS: VITAMIN D,25-HYDROXY 17.8 ng/ml (30.0-100.0)
[2021-02-08] MEDS: Dexamethasone 4 MG Tab PO SCH (10:19)
[2021-02-08] MEDS: Famotidine 20 MG Tab PO SCH ×2 (10:19→22:07)
[2021-02-08] MEDS: Zinc Sulfate 220 MG Cap PO SCH (10:20)
[2021-02-08] MEDS: Ascorbic Acid 500 MG Tab PO SCH ×2 (10:20→22:07)
[2021-02-08] MEDS: guaiFENesin 600 MG Tab.ER PO SCH ×2 (10:20→22:08)
[2021-02-08] MEDS: Enoxaparin 40 MG/0.4 ML Syringe SUBCUT SCH (10:21)
[2021-02-08] MEDS: Cholecalciferol (Vitamin D3) 5,000 UNIT Cap PO SCH (11:58)
[2021-02-08] MEDS: guaiFENesin/Dextromethorphan 100-10 MG/5 ML Soln 5 ML Cup PO SCH ×2 (14:40→22:08)
[2021-02-08] MEDS ORDERED: Magnesium Sulfate/Water 2 GM in Premix Bag 1 BAG IV ONE (16:00)
[2021-02-08] MEDS: Albuterol/Ipratropium 3.0-0.5 MG/3 ML Neb Soln NEB PRN ×2 (16:07→20:28)
[2021-02-08] MEDS: REMDESIVIR 100 MG in Sodium Chloride 0.9% 250 ML IV SCH (18:09)
[2021-02-08] MEDS: Melatonin 3 MG Tab PO PRN (22:13)
--- NOTE | 2021-02-09 06:49 | PCM.PN ---
- General Info Date of Service: 02/09/21 Admission Dx/Problem (Free Text): Admission Diagnosis/Problem Admission Diagnosis/Problem Hypoxemia Functional Status: Reports: Pain Controlled, Tolerating Diet, Ambulating, Urinating, Incentive Spirometry, Other (acapella ). Denies: New Symptoms - Review of Systems General: Reports: Weakness, Fatigue (Did not sleep last night). Denies: Fever, Malaise, Chills HEENT: Reports: No Symptoms. Denies: Headaches, Sore Throat Pulmonary: Reports: Shortness of Breath, Cough, Sputum. Denies: Wheezing Cardiovascular: Reports: Dyspnea on Exertion. Denies: Chest Pain, Palpitations, Edema Gastrointestinal: Reports: No Symptoms. Denies: Abdominal Pain, Constipation, Diarrhea, Nausea, Vomiting Genitourinary: Reports: No Symptoms. Denies: Pain Musculoskeletal: Reports: No Symptoms Skin: Reports: No Symptoms. Denies: Cyanosis Neurological: Reports: No Symptoms. Denies: Confusion, Dizziness, Headache, Numbness, Pre-Existing Deficit, Seizure, Syncope, Tingling, Difficulty Walking, Gait Disturbance Psychiatric: Reports: No Symptoms. Denies: Confusion - Patient Data Vitals - Most Recent: Last Vital Signs Temp 98.1 F 02/09/21 03:47 Pulse 79 02/09/21 03:47 Resp 20 02/09/21 03:47 BP 119/74 02/09/21 03:56 Pulse Ox 93 L 02/09/21 03:47 Weight - Most Recent: 247 lb 4.8 oz I&O - Last 24 Hours: Intake & Output 02/08/21 02/08/21 02/09/21 14:59 22:59 06:59 Intake Total 120 800 500 Output Total 900 1000 Balance 120 -100 -500 Lab Results Last 24 Hours: Laboratory Results - last 24 hr 02/08/21 02/08/21 Range/Units 05:55 06:05 Manual Slide Review Normal smear Sodium 138 (136-145) mEq/L Potassium 4.3 (3.5-5.1) mEq/L Chloride 100 (98-107) mEq/L Carbon Dioxide 25 (21-32) mEq/L Anion Gap 17.3 H (5-15) BUN 15 (7-18) mg/dL Creatinine 1.1 (0.7-1.3) mg/dL Est Cr Clr Drug Dosing 102.31 mL/min Estimated GFR (MDRD) > 60 (>60) mL/min BUN/Creatinine Ratio 13.6 L (14-18) Glucose 108 H (70-99) mg/dL Calcium 8.4 L (8.5-10.1) mg/dL Phosphorus 4.9 H (2.6-4.7) mg/dL Magnesium 1.7 L (1.8-2.4) mg/dL Total Bilirubin 0.3 (0.2-1.0) mg/dL AST 25 (15-37) U/L ALT 26 (16-63) U/L Alkaline Phosphatase 53 (46-116) U/L C-Reactive Protein 18.6 H* (<1.0) mg/dL Total Protein 6.5 (6.4-8.2) g/dl Albumin 3.1 L (3.4-5.0) g/dl Globulin 3.4 gm/dL Albumin/Globulin Ratio 0.9 L (1-2) Vitamin D 25-Hydroxy 17.8 L (30.0-100.0) ng/ml Med Orders - Current: Current Medications Acetaminophen (Acetaminophen 325 Mg Tab) 650 mg PO Q4H PRN PRN Reason: Pain (Mild 1-3)/fever Albuterol (Albuterol 6.7 Gm Inhaler) 0 gm INH ASDIRECTED PRN PRN Reason: Wheezing Albuterol/Ipratropium (Albuterol/Ipratropium 3.0-0.5 Mg/3 Ml Neb Soln) 3 ml NEB Q4HRRT PRN PRN Reason: Shortness of Breath Last Admin: 02/08/21 20:28 Dose: 3 ml Documented by: Ascorbic Acid (Ascorbic Acid 500 Mg Tab) 500 mg PO BID [facility] Last Admin: 02/08/21 22:07 Dose: 500 mg Documented by: Benzonatate (Benzonatate 100 Mg Cap) 200 mg PO Q8H PRN PRN Reason: Cough Last Admin: 02/07/21 20:38 Dose: 200 mg Documented by: Cholecalciferol (Cholecalciferol (Vitamin D3) 5,000 Unit Cap) 5,000 unit PO DAILY [facility] Last Admin: 02/08/21 11:58 Dose: 5,000 unit Documented by: Dexamethasone (Dexamethasone 4 Mg Tab) 6 mg PO DAILY [facility] Stop: 02/16/21 09:01 Last Admin: 02/08/21 10:19 Dose: 6 mg Documented by: Enoxaparin Sodium (Enoxaparin 40 Mg/0.4 Ml Syringe) 40 mg SUBCUT DAILY [facility] Last Admin: 02/08/21 10:21 Dose: 40 mg Documented by: Famotidine (Famotidine 20 Mg Tab) 20 mg PO BID [facility] Last Admin: 02/08/21 22:07 Dose: 20 mg Documented by: Guaifenesin (Guaifenesin 600 Mg Tab.Er) 600 mg PO BID [facility] Last Admin: 02/08/21 22:08 Dose: 600 mg Documented by: Guaifenesin/Dextromethorphan (Guaifenesin/Dextromethorphan 100-10 Mg/5 Ml Soln 5 Ml Cup) 10 ml PO TID@0700,1400,2100 [facility] Last Admin: 02/08/21 22:08 Dose: 10 ml Documented by: Remdesivir 100 mg/ Sodium (Chloride) 250 mls @ 250 mls/hr IV Q24H [facility] Stop: 02/11/21 17:59 Last Admin: 02/08/21 18:09 Dose: 250 mls/hr Documented by: Melatonin (Melatonin 3 Mg Tab) 6 mg PO BEDTIME PRN PRN Reason: Insomnia Last Admin: 02/08/21 22:13 Dose: 6 mg Documented by: Zinc Sulfate (Zinc Sulfate 220 Mg Cap) 220 mg PO DAILY [facility] Last Admin: 02/08/21 10:20 Dose: 220 mg Documented by: Discontinued Medications Remdesivir 200 mg/ Sodium (Chloride) 250 mls @ 250 mls/hr IV ONETIME ONE Stop: 02/07/21 17:59 Last Admin: 02/07/21 18:00 Dose: 250 mls/hr Documented by: Magnesium Sulfate 2 gm/ Premix 50 mls @ 25 mls/hr IV ONETIME ONE Stop: 02/08/21 17:59 Last Admin: 02/08/21 16:11 Dose: 25 mls/hr Documented by: Ibuprofen (Ibuprofen 600 Mg Tab) 600 mg PO ONETIME ONE Stop: 02/07/21 13:28 Last Admin: 02/07/21 13:45 Dose: 600 mg Documented by: Sodium Chloride (Sodium Chloride 0.9% 10 Ml Syringe) 10 ml FLUSH ASDIRECTED PRN PRN Reason: Keep Vein Open Last Admin: 02/07/21 14:05 Dose: 10 ml Documented by: - Exam Quality Assessment: Supplemental Oxygen (3L), DVT Prophylaxis. No: Urine Catheter General: Alert, Oriented, Cooperative, No Acute Distress HEENT: Pupils Equal, Pupils Reactive, Mucous Membr. Moist/Lindy Neck: Supple, Trachea Midline Lungs: Normal Respiratory Effort, Decreased Breath Sounds, Crackles. No: Wheezing Cardiovascular: Regular Rate, Regular Rhythm GI/Abdominal Exam: Normal Bowel Sounds, Soft, Non-Tender, No Distention (Male) Exam: Deferred Back Exam: Normal Inspection, Full Range of Motion Extremities: Normal Inspection, Normal Range of Motion, Non-Tender, No Pedal Edema, Normal Capillary Refill Skin: Warm, Dry, Intact Neurological: No New Focal Deficit Psy/Mental Status: Alert, Normal Affect, Normal Mood - Patient Data Lab Results Last 24 hrs: Laboratory Results - last 24 hr 02/08/21 02/08/21 Range/Units 05:55 06:05 Manual Slide Review Normal smear Sodium 138 (136-145) mEq/L Potassium 4.3 (3.5-5.1) mEq/L Chloride 100 (98-107) mEq/L Carbon Dioxide 25 (21-32) mEq/L Anion Gap 17.3 H (5-15) BUN 15 (7-18) mg/dL Creatinine 1.1 (0.7-1.3) mg/dL Est Cr Clr Drug Dosing 102.31 mL/min Estimated GFR (MDRD) > 60 (>60) mL/min BUN/Creatinine Ratio 13.6 L (14-18) Glucose 108 H (70-99) mg/dL Calcium 8.4 L (8.5-10.1) mg/dL Phosphorus 4.9 H (2.6-4.7) mg/dL Magnesium 1.7 L (1.8-2.4) mg/dL Total Bilirubin 0.3 (0.2-1.0) mg/dL AST 25 (15-37) U/L ALT 26 (16-63) U/L Alkaline Phosphatase 53 (46-116) U/L C-Reactive Protein 18.6 H* (<1.0) mg/dL Total Protein 6.5 (6.4-8.2) g/dl Albumin 3.1 L (3.4-5.0) g/dl Globulin 3.4 gm/dL Albumin/Globulin Ratio 0.9 L (1-2) Vitamin D 25-Hydroxy 17.8 L (30.0-100.0) ng/ml Result Diagrams: 02/09/21 06:26 02/09/21 06:26 Sepsis Event Note - Evaluation Sepsis Screening Result: No Definite Risk - Focused Exam Vital Signs: Vital Signs Temp Pulse Resp BP Pulse Ox Pulse Ox 02/09/21 03:56 119/74 02/09/21 03:47 98.1 F 79 20 93 L 02/09/21 00:18 97.0 F 64 18 116/62 97 02/08/21 20:28 91 L 02/08/21 19:41 98.1 F 73 20 120/61 91 L - Problem List & Annotations (1) Hypoxemia SNOMED Code(s): 879782743 Code(s): R09.02 - HYPOXEMIA Status: Acute Priority: High Current Visit: Yes (2) Pneumonia due to severe acute respiratory syndrome coronavirus 2 (SARS-CoV-2) SNOMED Code(s): 169974346995908781 Code(s): U07.1 - COVID-19; J12.82 - PNEUMONIA DUE TO CORONAVIRUS DISEASE 2019 Status: Acute Priority: High Current Visit: Yes (3) Hypomagnesemia SNOMED Code(s): 411779351 Code(s): E83.42 - HYPOMAGNESEMIA Status: Acute Priority: High Current Visit: Yes (4) Elevated d-dimer SNOMED Code(s): 241193713 Code(s): R79.89 - OTHER SPECIFIED ABNORMAL FINDINGS OF BLOOD CHEMISTRY Status: Acute Priority: High Current Visit: Yes (5) Vitamin D deficiency SNOMED Code(s): 70073359 Code(s): E55.9 - VITAMIN D DEFICIENCY, UNSPECIFIED Status: Acute Priority: High Current Visit: Yes (6) Cough SNOMED Code(s): 94235429 Code(s): R05.9 - COUGH, UNSPECIFIED Status: Acute Priority: High Current Visit: Yes (7) Insomnia SNOMED Code(s): 529825694 Code(s): G47.00 - INSOMNIA, UNSPECIFIED Status: Acute Priority: Medium Current Visit: Yes Qualifiers: Insomnia type: unspecified Qualified Code(s): G47.00 - Insomnia, unspecified - Problem List Review Problem List Initiated/Reviewed/Updated: Yes - My Orders Last 24 Hours: My Active Orders 02/08/21 11:06 Consult to Respiratory Therapy [Respiratory Care Assess and Treatment] [CONS] Routine 02/08/21 11:15 Cholecalciferol (Vitamin D3) [Vitamin D3] 5,000 unit PO DAILY 02/08/21 14:00 Dextromethorphan/guaiFENesin [Robitussin DM] 10 ml PO TID@0700,1400,2100 - Assessment Assessment:: 02/08/2021 30-year-old male with no past chronic medical history admitted for treatment of his COVID-19 pneumonia. He continues on remdesivir and dexamethasone. He has been complaining of significant cough and is utilizing his Tessalon Perles. We will add Robitussin-DM 3 times daily scheduled. WBC today was 4.12. Hemoglobin 14.1. Platelet 183,000. Neutrophils are 77.4%. Sodium is 138. Potassium is 4.3. Chloride 100. Carbon dioxide 25. Anion gap is 17.3. BUN is 15. Creatinine 1.1. GFR greater than 60. Glucose 108. Calcium is 8.4. Phosphorus is elevated at 4.9. Magnesium is 1.7 and this will be supplemented. Total bilirubin 0.3. AST is 25. ALT is 26. Alkaline phosphatase is 53. CRP is 18.6. Vitamin D is 17.8 and will be supplemented. Remains on 2 L with saturations in the low 90s. Vital signs of otherwise been stable. We will continue current treatment plan. Discharge likely in 3 to 4 days. 02/09/2021 30-year-old male admitted to the floor for treatment of COVID-19 pneumonia. He continues on remdesivir and dexamethasone. States his cough is better today but has not been sleeping. This is likely a combination of his steroid and being in the hospital. He did receive melatonin and states it did not help much. We will add as needed Restoril. Patient inquired about when he can go home and we did discuss tomorrow versus the next day. He feels like if he can go to his own bed he can sleep better. We did discuss need for continuing treatment and he remains on 3 L of oxygen. Dates overall he felt better yesterday. Labs today show WBC of 6.53. Hemoglobin 15.6. Platelet under 90,000. Neutrophils are elevated 72.0%. D-dimer is improved to 0.88. Sodium 141. Potassium 4.4. Chloride 103. Carbon dioxide 27. Anion gap is 15.4. BUN is 18. Creatinine 1.2. GFR greater than 60. Glucose 113. Calcium 9.4. Magnesium is up to 2.5. Total bilirubin 0.3. AST is 27, ALT 18, alkaline phosphatase 95. CRP is down to 9.1. Protein 7.7. Albumin 3.3. Vitamin D yesterday was 17.8 and he was started on daily supplementation. Unknown length of stay due to severity of COVID-19 symptoms. - Plan Plan:: Pneumonia due to severe acute respiratory syndrome coronavirus 2 (SARS-CoV-2) Hypoxemia Elevated D dimer Cough * Oxygen as needed to keep saturations between 88 and 95% * Remdesivir daily for 5 days * Dexamethasone 6 mg daily for 10 days * I-S/Acapella * RT consultation * Mucinex * Zinc supplementation * As needed Ronni Martinez * Schedule 3 times daily Robitussin-DM * Airborne/contact isolation * Prone whenever able * As needed DuoNebs * As needed albuterol MDI * Supplement vitamin C * Daily labs * Every 48 hour D-dimer * Telemetry * Continuous pulse oximetry Hypomagnesemia, resolved * Supplemented * Monitor Vitamin D deficiency * Daily supplementation Insomnia * Likely exacerbated by steroid being in hospital * Scheduled nightly melatonin * As needed Restoril Code status: Full code PCP: None- needs to establish DVT prophylaxis: Lovenox Disposition: Patient admitted to the floor for management of COVID-19 pneumonia. Length of stay likely 4 to 5 days pending progress.
[2021-02-09] MEDS: guaiFENesin/Dextromethorphan 100-10 MG/5 ML Soln 5 ML Cup PO SCH ×4 (06:59→22:20)
[2021-02-09] MEDS: guaiFENesin 600 MG Tab.ER PO SCH ×2 (08:53→22:19)
[2021-02-09] MEDS: Cholecalciferol (Vitamin D3) 5,000 UNIT Cap PO SCH (08:53)
[2021-02-09] MEDS: Dexamethasone 4 MG Tab PO SCH (08:53)
[2021-02-09] MEDS: Famotidine 20 MG Tab PO SCH ×2 (08:53→22:18)
[2021-02-09] MEDS: Ascorbic Acid 500 MG Tab PO SCH ×2 (08:53→22:19)
[2021-02-09] MEDS: Zinc Sulfate 220 MG Cap PO SCH (08:53)
[2021-02-09] MEDS: Enoxaparin 40 MG/0.4 ML Syringe SUBCUT SCH (08:54)
[2021-02-09] MEDS: Albuterol/Ipratropium 3.0-0.5 MG/3 ML Neb Soln NEB PRN ×2 (09:23→16:45)
[2021-02-09] MEDS ORDERED: Temazepam 15 MG Cap PO PRN (09:56)
[2021-02-09] MEDS: REMDESIVIR 100 MG in Sodium Chloride 0.9% 250 ML IV SCH (16:47)
[2021-02-10] MEDS: guaiFENesin/Dextromethorphan 100-10 MG/5 ML Soln 5 ML Cup PO SCH ×3 (06:30→21:19)
--- NOTE | 2021-02-10 07:44 | PCM.PN ---
- General Info Date of Service: 02/10/21 Admission Dx/Problem (Free Text): Admission Diagnosis/Problem Admission Diagnosis/Problem acute respiratory failure due to COVID-19 pneumonia. Subjective Update: The patient is an otherwise healthy 30-year-old gentleman who was admitted to acute hospitalization on February 07, 2021 due to COVID-19 pneumonia. The patient says that he still feels short of breath. He has had severe cough. The patient also has been having difficulty in maintaining his oxygen saturations. The patient has been tolerating his diet. Functional Status: Reports: Pain Controlled, Tolerating Diet. Denies: New Symptoms - Review of Systems General: Reports: Weakness HEENT: Reports: No Symptoms Pulmonary: Reports: Shortness of Breath, Cough, Wheezing Cardiovascular: Reports: No Symptoms Gastrointestinal: Reports: No Symptoms Genitourinary: Reports: No Symptoms Musculoskeletal: Reports: No Symptoms Skin: Reports: No Symptoms Neurological: Reports: No Symptoms Psychiatric: Reports: No Symptoms - Patient Data Vitals - Most Recent: Last Vital Signs Temp 36.7 C 02/10/21 06:26 Pulse 72 02/10/21 06:26 Resp 18 02/10/21 06:26 BP 119/65 02/10/21 06:26 Pulse Ox 90 L 02/10/21 06:26 Weight - Most Recent: 109.905 kg I&O - Last 24 Hours: Intake & Output 02/09/21 02/10/21 02/10/21 22:59 06:59 14:59 Intake Total 800 600 Output Total 900 Balance -100 600 Lab Results Last 24 Hours: Laboratory Results - last 24 hr 02/09/21 02/10/21 02/10/21 Range/Units 06:26 06:10 06:10 WBC 8.39 (4.23-9.07) K/mm3 RBC 5.37 (4.63-6.08) M/mm3 Hgb 15.9 (13.7-17.5) gm/dl Hct 48.8 (40.1-51.0) % MCV 90.9 (79.0-92.2) fl MCH 29.6 (25.7-32.2) pg MCHC 32.6 (32.2-35.5) g/dl RDW Std Deviation 42.5 (35.1-43.9) fL Plt Count 232 (163-337) K/mm3 MPV 11.2 (9.4-12.3) fl Neut % (Auto) 74.2 H (34.0-67.9) % Lymph % (Auto) 13.8 L (21.8-53.1) % Hood % (Auto) 9.5 (5.3-12.2) % Eos % (Auto) 0 L (0.8-7.0) Baso % (Auto) 0.4 (0.1-1.2) % Neut # (Auto) 6.22 H (1.78-5.38) K/mm3 Lymph # (Auto) 1.16 L (1.32-3.57) K/mm3 Hood # (Auto) 0.80 (0.30-0.82) K/mm3 Eos # (Auto) 0.00 L (0.04-0.54) K/mm3 Baso # (Auto) 0.03 (0.01-0.08) K/mm3 Manual Slide Review Normal smear Sodium 141 143 (136-145) mEq/L Potassium 4.4 4.8 (3.5-5.1) mEq/L Chloride 103 104 (98-107) mEq/L Carbon Dioxide 27 27 (21-32) mEq/L Anion Gap 15.4 H 16.8 H (5-15) BUN 18 20 H (7-18) mg/dL Creatinine 1.1 1.1 (0.7-1.3) mg/dL Est Cr Clr Drug Dosing 102.31 102.31 mL/min Estimated GFR (MDRD) > 60 > 60 (>60) mL/min BUN/Creatinine Ratio 16.4 18.2 H (14-18) Glucose 113 H 89 (70-99) mg/dL Calcium 9.4 9.2 (8.5-10.1) mg/dL Magnesium 2.5 H 2.5 H (1.8-2.4) mg/dL Total Bilirubin 0.3 0.4 (0.2-1.0) mg/dL AST 27 59 H (15-37) U/L ALT 18 126 H (16-63) U/L Alkaline Phosphatase 53 61 (46-116) U/L C-Reactive Protein 9.1 H* 4.4 H* (<1.0) mg/dL Total Protein 7.7 7.1 (6.4-8.2) g/dl Albumin 3.3 L 3.5 (3.4-5.0) g/dl Globulin 4.4 3.6 gm/dL Albumin/Globulin Ratio 0.8 L 1.0 (1-2) Med Orders - Current: Current Medications Acetaminophen (Acetaminophen 325 Mg Tab) 650 mg PO Q4H PRN PRN Reason: Pain (Mild 1-3)/fever Last Admin: 02/09/21 12:32 Dose: 650 mg Documented by: Albuterol (Albuterol 6.7 Gm Inhaler) 0 gm INH ASDIRECTED PRN PRN Reason: Wheezing Albuterol/Ipratropium (Albuterol/Ipratropium 3.0-0.5 Mg/3 Ml Neb Soln) 3 ml NEB Q4HRRT PRN PRN Reason: Shortness of Breath Last Admin: 02/09/21 16:45 Dose: 3 ml Documented by: Ascorbic Acid (Ascorbic Acid 500 Mg Tab) 500 mg PO BID [facility] Last Admin: 02/09/21 22:19 Dose: 500 mg Documented by: Benzonatate (Benzonatate 100 Mg Cap) 200 mg PO Q8H PRN PRN Reason: Cough Last Admin: 02/07/21 20:38 Dose: 200 mg Documented by: Cholecalciferol (Cholecalciferol (Vitamin D3) 5,000 Unit Cap) 5,000 unit PO DAILY [facility] Last Admin: 02/09/21 08:53 Dose: 5,000 unit Documented by: Dexamethasone (Dexamethasone 4 Mg Tab) 6 mg PO DAILY [facility] Stop: 02/16/21 09:01 Last Admin: 02/09/21 08:53 Dose: 6 mg Documented by: Enoxaparin Sodium (Enoxaparin 40 Mg/0.4 Ml Syringe) 40 mg SUBCUT DAILY [facility] Last Admin: 02/09/21 08:54 Dose: 40 mg Documented by: Famotidine (Famotidine 20 Mg Tab) 20 mg PO BID [facility] Last Admin: 02/09/21 22:18 Dose: 20 mg Documented by: Guaifenesin (Guaifenesin 600 Mg Tab.Er) 600 mg PO BID [facility] Last Admin: 02/09/21 22:19 Dose: 600 mg Documented by: Guaifenesin/Dextromethorphan (Guaifenesin/Dextromethorphan 100-10 Mg/5 Ml Soln 5 Ml Cup) 10 ml PO TID@0700,1400,2100 [facility] Last Admin: 02/10/21 06:30 Dose: 10 ml Documented by: Remdesivir 100 mg/ Sodium (Chloride) 250 mls @ 250 mls/hr IV Q24H [facility] Stop: 02/11/21 17:59 Last Admin: 02/09/21 16:47 Dose: 250 mls/hr Documented by: Melatonin (Melatonin 3 Mg Tab) 6 mg PO BEDTIME PRN PRN Reason: Insomnia Last Admin: 02/08/21 22:13 Dose: 6 mg Documented by: Temazepam (Temazepam 15 Mg Cap) 15 mg PO BEDTIME PRN PRN Reason: Insomnia Last Admin: 02/09/21 22:24 Dose: 15 mg Documented by: Zinc Sulfate (Zinc Sulfate 220 Mg Cap) 220 mg PO DAILY [facility] Last Admin: 02/09/21 08:53 Dose: 220 mg Documented by: Discontinued Medications Remdesivir 200 mg/ Sodium (Chloride) 250 mls @ 250 mls/hr IV ONETIME ONE Stop: 02/07/21 17:59 Last Admin: 02/07/21 18:00 Dose: 250 mls/hr Documented by: Magnesium Sulfate 2 gm/ Premix 50 mls @ 25 mls/hr IV ONETIME ONE Stop: 02/08/21 17:59 Last Admin: 02/08/21 16:11 Dose: 25 mls/hr Documented by: Ibuprofen (Ibuprofen 600 Mg Tab) 600 mg PO ONETIME ONE Stop: 02/07/21 13:28 Last Admin: 02/07/21 13:45 Dose: 600 mg Documented by: Sodium Chloride (Sodium Chloride 0.9% 10 Ml Syringe) 10 ml FLUSH ASDIRECTED PRN PRN Reason: Keep Vein Open Last Admin: 02/07/21 14:05 Dose: 10 ml Documented by: - Exam Quality Assessment: Supplemental Oxygen, DVT Prophylaxis General: Alert, Oriented, Cooperative, No Acute Distress HEENT: Pupils Equal, Pupils Reactive, EOMI, Mucous Membr. Moist/[place] Neck: Supple, Trachea Midline Lungs: Decreased Breath Sounds, Crackles Cardiovascular: Regular Rate, Regular Rhythm GI/Abdominal Exam: Normal Bowel Sounds, Soft, Non-Tender, No Distention (Male) Exam: Deferred Back Exam: Normal Inspection, Full Range of Motion Extremities: Normal Inspection, Normal Range of Motion, No Pedal Edema Skin: Warm, Dry, Intact Neurological: No New Focal Deficit, Normal Gait, Normal Speech Psy/Mental Status: Alert, Normal Affect, Normal Mood - Patient Data Lab Results Last 24 hrs: Laboratory Results - last 24 hr 02/09/21 02/10/21 02/10/21 Range/Units 06:26 06:10 06:10 WBC 8.39 (4.23-9.07) K/mm3 RBC 5.37 (4.63-6.08) M/mm3 Hgb 15.9 (13.7-17.5) gm/dl Hct 48.8 (40.1-51.0) % MCV 90.9 (79.0-92.2) fl MCH 29.6 (25.7-32.2) pg MCHC 32.6 (32.2-35.5) g/dl RDW Std Deviation 42.5 (35.1-43.9) fL Plt Count 232 (163-337) K/mm3 MPV 11.2 (9.4-12.3) fl Neut % (Auto) 74.2 H (34.0-67.9) % Lymph % (Auto) 13.8 L (21.8-53.1) % Hood % (Auto) 9.5 (5.3-12.2) % Eos % (Auto) 0 L (0.8-7.0) Baso % (Auto) 0.4 (0.1-1.2) % Neut # (Auto) 6.22 H (1.78-5.38) K/mm3 Lymph # (Auto) 1.16 L (1.32-3.57) K/mm3 Hood # (Auto) 0.80 (0.30-0.82) K/mm3 Eos # (Auto) 0.00 L (0.04-0.54) K/mm3 Baso # (Auto) 0.03 (0.01-0.08) K/mm3 Manual Slide Review Normal smear Sodium 141 143 (136-145) mEq/L Potassium 4.4 4.8 (3.5-5.1) mEq/L Chloride 103 104 (98-107) mEq/L Carbon Dioxide 27 27 (21-32) mEq/L Anion Gap 15.4 H 16.8 H (5-15) BUN 18 20 H (7-18) mg/dL Creatinine 1.1 1.1 (0.7-1.3) mg/dL Est Cr Clr Drug Dosing 102.31 102.31 mL/min Estimated GFR (MDRD) > 60 > 60 (>60) mL/min BUN/Creatinine Ratio 16.4 18.2 H (14-18) Glucose 113 H 89 (70-99) mg/dL Calcium 9.4 9.2 (8.5-10.1) mg/dL Magnesium 2.5 H 2.5 H (1.8-2.4) mg/dL Total Bilirubin 0.3 0.4 (0.2-1.0) mg/dL AST 27 59 H (15-37) U/L ALT 18 126 H (16-63) U/L Alkaline Phosphatase 53 61 (46-116) U/L C-Reactive Protein 9.1 H* 4.4 H* (<1.0) mg/dL Total Protein 7.7 7.1 (6.4-8.2) g/dl Albumin 3.3 L 3.5 (3.4-5.0) g/dl Globulin 4.4 3.6 gm/dL Albumin/Globulin Ratio 0.8 L 1.0 (1-2) Result Diagrams: 02/10/21 06:10 02/10/21 06:10 Sepsis Event Note - Evaluation Sepsis Screening Result: No Definite Risk - Focused Exam Vital Signs: Vital Signs Temp Pulse Resp BP Pulse Ox Pulse Ox 02/10/21 06:26 36.7 C 72 18 119/65 90 L 02/09/21 22:15 36.8 C 63 18 130/81 96 02/09/21 20:33 91 L - Problem List & Annotations (1) Acute respiratory failure due to COVID-19 SNOMED Code(s): 690151415 Code(s): U07.1 - COVID-19; J96.00 - ACUTE RESPIRATORY FAILURE, UNSP W HYPOXIA OR HYPERCAPNIA Status: Acute Current Visit: Yes (2) Pneumonia due to severe acute respiratory syndrome coronavirus 2 (SARS-CoV- 2) SNOMED Code(s): 910997888795052920 Code(s): U07.1 - COVID-19; J12.82 - PNEUMONIA DUE TO CORONAVIRUS DISEASE 2019 Status: Acute Priority: High Current Visit: Yes - Problem List Review Problem List Initiated/Reviewed/Updated: Yes - Assessment Assessment:: 02/08/2021 30-year-old male with no past chronic medical history admitted for treatment of his COVID-19 pneumonia. He continues on remdesivir and dexamethasone. He has been complaining of significant cough and is utilizing his Tessalon Perles. We will add Robitussin-DM 3 times daily scheduled. WBC today was 4.12. Hemoglobin 14.1. Platelet 183,000. Neutrophils are 77.4%. Sodium is 138. Potassium is 4.3. Chloride 100. Carbon dioxide 25. Anion gap is 17.3. BUN is 15. Creatinine 1.1. GFR greater than 60. Glucose 108. Calcium is 8.4. Phosphorus is elevated at 4.9. Magnesium is 1.7 and this will be supplemented. Total bilirubin 0.3. AST is 25. ALT is 26. Alkaline phosphatase is 53. CRP is 18.6. Vitamin D is 17.8 and will be supplemented. Remains on 2 L with saturations in the low 90s. Vital signs of otherwise been stable. We will continue current treatment plan. Discharge likely in 3 to 4 days. 02/09/2021 30-year-old male admitted to the floor for treatment of COVID-19 pneumonia. He continues on remdesivir and dexamethasone. States his cough is better today but has not been sleeping. This is likely a combination of his steroid and being in the hospital. He did receive melatonin and states it did not help much. We will add as needed Restoril. Patient inquired about when he can go home and we did discuss tomorrow versus the next day. He feels like if he can go to his own bed he can sleep better. We did discuss need for continuing treatment and he r emains on 3 L of oxygen. Dates overall he felt better yesterday. Labs today show WBC of 6.53. Hemoglobin 15.6. Platelet under 90,000. Neutrophils are elevated 72.0%. D-dimer is improved to 0.88. Sodium 141. Potassium 4.4. Chloride 103. Carbon dioxide 27. Anion gap is 15.4. BUN is 18. Creatinine 1.2. GFR greater than 60. Glucose 113. Calcium 9.4. Magnesium is up to 2.5. Total bilirubin 0.3. AST is 27, ALT 18, alkaline phosphatase 95. CRP is down to 9.1. Protein 7.7. Albumin 3.3. Vitamin D yesterday was 17.8 and he was started on daily supplementation. Unknown length of stay due to severity of COVID-19 symptoms. 02/10/2021 The patient is a 30-year-old gentleman who had been admitted secondary to acute respiratory failure due to COVID-19 pneumonia. The patient will complete his final dose of remdesivir tomorrow. The patient should be appropriate for discharge after completion of his remdesivir. I have also ordered Tessalon Perles to help him with his cough. Repeat laboratory studies have been ordered. He has been encouraged to continue to ambulate. The patient also has been instructed to remain prone at times in order to maintain his oxygen saturations. He has been instructed in the use of the incentive spirometer and Acapella. The patient oxygen will continue to keep his saturations around 92%. The patient should be appropriate for discharge after improvement in his symptoms and oxygen requirements have improved. I explained to the patient that he may be needing home oxygen temporarily. - Plan Plan:: Pneumonia due to severe acute respiratory syndrome coronavirus 2 (SARS-CoV-2) Hypoxemia Elevated D dimer Cough * Oxygen as needed to keep saturations between 88 and 95% * Remdesivir daily for 5 days * Dexamethasone 6 mg daily for 10 days * I-S/Acapella * RT consultation * Mucinex * Zinc supplementation * As needed Tessalon Perles * Schedule 3 times daily Robitussin-DM * Airborne/contact isolation * Prone whenever able * As needed DuoNebs * As needed albuterol MDI * Supplement vitamin C * Daily labs * Every 48 hour D-dimer * Telemetry * Continuous pulse oximetry Hypomagnesemia, resolved * Supplemented * Monitor Vitamin D deficiency * Daily supplementation Insomnia * Likely exacerbated by steroid being in hospital * Scheduled nightly melatonin * As needed Restoril Code status: Full code PCP: None- needs to establish DVT prophylaxis: Lovenox Disposition: Patient admitted to the floor for management of COVID-19 pneumonia. Length of stay likely 4 to 5 days pending progress.
[2021-02-10] MEDS: guaiFENesin 600 MG Tab.ER PO SCH ×2 (09:30→21:19)
[2021-02-10] MEDS: Famotidine 20 MG Tab PO SCH ×2 (09:30→21:19)
[2021-02-10] MEDS: Ascorbic Acid 500 MG Tab PO SCH ×2 (09:30→21:19)
[2021-02-10] MEDS: Dexamethasone 4 MG Tab PO SCH (09:30)
[2021-02-10] MEDS: Cholecalciferol (Vitamin D3) 5,000 UNIT Cap PO SCH (09:30)
[2021-02-10] MEDS: Enoxaparin 40 MG/0.4 ML Syringe SUBCUT SCH (09:30)
[2021-02-10] MEDS: Zinc Sulfate 220 MG Cap PO SCH (09:30)
[2021-02-10] MEDS: Albuterol/Ipratropium 3.0-0.5 MG/3 ML Neb Soln NEB PRN ×2 (09:54→14:29)
[2021-02-10] MEDS: REMDESIVIR 100 MG in Sodium Chloride 0.9% 250 ML IV SCH (16:58)
[2021-02-10] MEDS: Melatonin 3 MG Tab PO PRN (21:19)
[2021-02-11] MEDS: guaiFENesin/Dextromethorphan 100-10 MG/5 ML Soln 5 ML Cup PO SCH ×3 (06:06→13:04)
[2021-02-11] MEDS: Cholecalciferol (Vitamin D3) 5,000 UNIT Cap PO SCH (08:56)
[2021-02-11] MEDS: Famotidine 20 MG Tab PO SCH (08:56)
[2021-02-11] MEDS: Ascorbic Acid 500 MG Tab PO SCH (08:56)
[2021-02-11] MEDS: Zinc Sulfate 220 MG Cap PO SCH (08:56)
[2021-02-11] MEDS: guaiFENesin 600 MG Tab.ER PO SCH (08:56)
[2021-02-11] MEDS: Enoxaparin 40 MG/0.4 ML Syringe SUBCUT SCH (08:59)
[2021-02-11] MEDS ORDERED: Dexamethasone 4 MG Tab PO SCH ×2 (09:00→12:00)
[2021-02-11] MEDS ORDERED: Aspirin 325 MG Tab.EC PO SCH (09:15)
--- NOTE | 2021-02-11 09:27 | CR ---
Chest: Frontal view of the chest was obtained. Comparison: Prior chest x-ray of 02/07/21. Increased density is noted throughout both sides of the chest. These findings have worsened from prior chest x-ray. Heart size and mediastinum are stable. Bony structures show nothing acute. Impression: 1. Worsening chest x-ray from prior study compatible with worsening COVID pneumonia. Diagnostic code #3
--- NOTE | 2021-02-11 10:00 | PCM.DCSUM1 ---
<John Peterson - Last Filed: 02/11/21 12:34> Discharge Summary - Hospital Course HPI Initial Comments: 30-year-old male with history of cough and body aches for last 2 weeks presents to the emergency department with worsening shortness of breath, cough, and fever. Patient was diagnosed with COVID-19 on , February 03, 2021 after having worsening shortness of breath and cough. He was placed on albuterol and prednisone as an outpatient. Patient is unvaccinated. As stated above he started having symptoms 2 weeks ago progressively worsened to the point of them being severe today. He has had some nausea and decreased appetite but no diarrhea, vomiting, or constipation. He has been using Tylenol for his fever and body aches. He denies any history of tobacco. He occasionally drinks alcohol. No illicit drug use. His was positive for Covid approximately 1 month ago. He has had some decreased sense of smell. On presentation to the emergency department his oxygen saturations were in the mid 80s on room air. He was placed on 2 L nasal cannula and his oxygen saturat ions did go up to the low 90s. Temperature was 100.0 and he received ibuprofen 600 mg. Chest x-ray was consistent with Covid pneumonia. Initially he was tachycardic and tachypneic. Patient states he improved on oxygen. White count was 4.71, D-dimer 1.6, CRP 17.2, normal renal function and electrolytes except for magnesium of 1.6. Albumin was low at 3.1. Diagnosis: Stroke: No - Discharge Data Discharge Date: 02/11/21 (Admit date: 02/07/2021) Discharge Disposition: Home, Self-Care 01 Condition: Good - Referral to Home Health Primary Care Physician: PCP None - Discharge Diagnosis/Problem(s) (1) Hypoxemia SNOMED Code(s): 477658630 ICD Code: R09.02 - HYPOXEMIA Status: Resolved Priority: High (2) Pneumonia due to severe acute respiratory syndrome coronavirus 2 (SARS-CoV-2) SNOMED Code(s): 118190214008318392 ICD Code: U07.1 - COVID-19; J12.82 - PNEUMONIA DUE TO CORONAVIRUS DISEASE 2019 Status: Acute Priority: High (3) Hypomagnesemia SNOMED Code(s): 469703898 ICD Code: E83.42 - HYPOMAGNESEMIA Status: Resolved Priority: High (4) Elevated d-dimer SNOMED Code(s): 170315742 ICD Code: R79.89 - OTHER SPECIFIED ABNORMAL FINDINGS OF BLOOD CHEMISTRY Status: Acute Priority: High (5) Vitamin D deficiency SNOMED Code(s): 11069068 ICD Code: E55.9 - VITAMIN D DEFICIENCY, UNSPECIFIED Status: Acute Priority: High (6) Cough SNOMED Code(s): 82415249 ICD Code: R05.9 - COUGH, UNSPECIFIED Status: Acute Priority: High (7) Insomnia SNOMED Code(s): 044887693 ICD Code: G47.00 - INSOMNIA, UNSPECIFIED Status: Acute Priority: Medium Qualifiers: Insomnia type: unspecified Qualified Code(s): G47.00 - Insomnia, unspecified - Patient Summary/Data Consults: Consultations 02/08/21 11:06 Consult to Respiratory Therapy [Respiratory Care Assess and Treatment] [CONS] Routine Labs Pending at D/C: None Recommended Follow-up Testing/Procedures: Follow-up with primary care provider within 5 to 7 days of discharge, sooner if needed. * Patient weaned off oxygen prior to discharge. * Discharged on 5 more days of p.o. 6 mg dexamethasone. * Discharged on 3 to 25 mg daily aspirin as D-dimer was elevated. Please reevaluate this and discontinue as needed. * Patient discharged on zinc supplementation. * Vitamin D was obtained and was low. Patient discharged on vitamin D supplementation. Please follow-up with this. * Recommend repeat CBC, CMP, magnesium, and consider repeat chest x-ray in follow-up. Hospital Course: This is a 30-year-old male admitted to the floor for treatment of his COVID-19 pneumonia including hypoxia. At his worst he was requiring 5 L of oxygen via nasal cannula. He completed 5 days of 6 mg dexamethasone. He also completed his remdesivir treatment. Magnesium was low and was supplemented. Vitamin D was obtained and was low at 17.8 and he was started on supplementation for this. He was also receiving zinc supplementation during his stay. He was able to be weaned off of oxygen prior to discharge. CRP did trend downward. He was ambulating around the room. He was utilizing incentive spirometer and Acapella and was instructed to continue to utilize this for 1 to 2 weeks or until symptoms resolve. D-dimer was noted to be elevated and was up to 1.40 prior to discharge. Because of this he will be discharged on 325 mg daily aspirin. He should continue this until evaluated by his primary care provider and he may be discontinued at their discretion. He was weaned off of oxygen prior to discharge. Overall he did well. He will be discharged on zinc supplementation. He does have a albuterol MDI and was instructed to continue this as directed for shortness of breath. He may utilize [id number] cough suppressants as needed. He will be discharged on vitamin D supplementation as noted earlier and 6 mg dexamethasone for 5 more days. He was instructed to continue to quarantine/isolate for 10 days from symptom onset or at the recommendation of his keycase assembler from the [facility]. He was instructed to contact his primary care provider or return the emergency room should symptoms return or worsen. Recommend PCP follow-up within 5 to 7 days of discharge, sooner if needed. Recommend repeat CBC, CMP, and magnesium in follow-up. Consider repeat chest x-ray. Discharged home today. - Patient Instructions Diet: Usual Diet as Tolerated Activity: As Tolerated, Rest and Relax Today Driving: Do Not Drive (until feeling better ) Showering/Bathing: May Shower Notify Provider of: Fever, Increased Pain, Nausea and/or Vomiting Other/Special Instructions: Follow-up with primary care provider within 5 to 7 days of discharge, sooner if needed. Your vitamin D was low here and was supplemented. You will be prescribed supplementation for this. Your primary care provider can follow-up with us in the future. You will be prescribed 5 more days of a steroid tablet called dexamethasone. Take your first dose tomorrow, 02/11/2021, and take this every day until gone. You will be prescribed zinc supplementation. Studies have shown that this may help those with Covid symptoms. You may discuss if you need to continue this with your primary care provider. Continue to utilize your albuterol inhaler as needed for shortness of breath as prescribed. Continue to utilize your incentive spirometer (clear/blue device you inhale through) and Acapella (tubelike device you blow through) for 1-2 more weeks or until symptoms resolve. Continue to prone (lay on your belly) as much as possible until symptoms resolve. You should continue to isolate/quarantine for a total of 10 days from symptom onset. You will likely receive a call from a cna per diem from the [facility]. Follow their directions. Take it easy. Stay active but listen to your body. If you feel short of breath rest. Obtain a fingertip pulse oximeter if you do not have one already. Check this twice a day. Contact your primary care provider if you notice saturations less than 87% regularly. Your labs indicate that you may be at risk for blood clots. We know Covid increases risk of blood clots. Because of this we would like you to start a daily full-strength 324 mg aspirin. You can discuss with your primary care provider on whether or not to continue this. Should symptoms return or worsen contact your primary care provider or return to the emergency room. - Discharge Plan *PRESCRIPTION DRUG MONITORING PROGRAM REVIEWED*: No *COPY OF PRESCRIPTION DRUG MONITORING REPORT IN PATIENT VIET: No Prescriptions/Med Rec: dexAMETHasone [Dexamethasone] 6 mg PO DAILY #5 tablet Aspirin [Ecotrin EC] 325 mg PO DAILY #20 tab.ec Cholecalciferol (Vitamin D3) [Vitamin D3] 5,000 unit PO DAILY #20 cap Zinc Sulfate [Zincate] 220 mg PO DAILY #20 cap Home Medications: Home Meds Albuterol [Proventil HFA] 1 - 2 puff INH ASDIRECTED PRN 02/07/21 [History] Aspirin [Ecotrin EC] 325 mg PO DAILY #20 tab.ec 02/11/21 [Rx] Cholecalciferol (Vitamin D3) [Vitamin D3] 5,000 unit PO DAILY #20 cap 02/11/21 [Rx] Zinc Sulfate [Zincate] 220 mg PO DAILY #20 cap 02/11/21 [Rx] dexAMETHasone [Dexamethasone] 6 mg PO DAILY #5 tablet 02/11/21 [Rx] Oxygen Therapy Mode: Room Air Patient Handouts: COVID-19, COVID-19: How to Protect Yourself and Others - CDC Forms: ED Department Discharge Referrals: PCP,None [Primary Care Provider] - (You have been provided a list of providers from [facility]. Call on 02/14/21 to schedule a "hospital follow up" within 1 week and establish care your provider of choice. ) - Discharge Summary/Plan Comment DC Time >30 min.: Yes Total # of Minutes for Discharge Time: 45 - General Info Date of Service: 02/11/21 Admission Dx/Problem (Free Text: Admission Diagnosis/Problem Admission Diagnosis/Problem acute respiratory failure due to COVID-19 pneumonia. Functional Status: Reports: Pain Controlled, Tolerating Diet, Ambulating, Urinating, Incentive Spirometry, Other (Acapella ). Denies: New Symptoms - Review of Systems General: Reports: Weakness (improving ). Denies: Fever, Fatigue, Malaise, Chills HEENT: Reports: No Symptoms. Denies: Headaches, Sore Throat Pulmonary: Reports: Shortness of Breath, Cough, Sputum. Denies: Pleuritic Chest Pain, Wheezing Cardiovascular: Reports: No Symptoms, Dyspnea on Exertion. Denies: Chest Pain, Palpitations, Edema Gastrointestinal: Reports: No Symptoms. Denies: Abdominal Pain, Constipation, Diarrhea, Nausea, Vomiting Genitourinary: Reports: No Symptoms. Denies: Pain Musculoskeletal: Reports: No Symptoms Skin: Reports: No Symptoms. Denies: Cyanosis Neurological: Reports: No Symptoms. Denies: Confusion, Dizziness, Headache, Numbness, Pre-Existing Deficit, Seizure, Syncope, Tingling, Trouble Speaking, Difficulty Walking, Weakness, Change in Speech, Gait Disturbance Psychiatric: Reports: No Symptoms - Patient Data Vitals - Most Recent: Last Vital Signs Temp 98.2 F 02/11/21 06:10 Pulse 77 02/11/21 06:10 Resp 18 02/11/21 06:10 BP 122/62 02/11/21 06:10 Pulse Ox 91 L 02/11/21 06:10 Weight - Most Recent: 110.359 kg I&O - Last 24 hours: Intake & Output 02/10/21 02/11/21 02/11/21 22:59 06:59 14:59 Intake Total 1650 1200 Balance 1650 1200 Lab Results - Last 24 hrs: Laboratory Results - last 24 hr 02/11/21 02/11/21 02/11/21 Range/Units 07:10 07:10 07:10 WBC 9.21 H (4.23-9.07) K/mm3 RBC 5.01 (4.63-6.08) M/mm3 Hgb 15.0 (13.7-17.5) gm/dl Hct 45.5 (40.1-51.0) % MCV 90.8 (79.0-92.2) fl MCH 29.9 (25.7-32.2) pg MCHC 33.0 (32.2-35.5) g/dl RDW Std Deviation 42.2 (35.1-43.9) fL Plt Count 253 (163-337) K/mm3 MPV 11.2 (9.4-12.3) fl Neut % (Auto) 68.2 H (34.0-67.9) % Lymph % (Auto) 16.2 L (21.8-53.1) % [place] % (Auto) 11.8 (5.3-12.2) % Eos % (Auto) 0 L (0.8-7.0) Baso % (Auto) 0.4 (0.1-1.2) % Neut # (Auto) 6.28 H (1.78-5.38) K/mm3 Lymph # (Auto) 1.49 (1.32-3.57) K/mm3 [place] # (Auto) 1.09 H (0.30-0.82) K/mm3 Eos # (Auto) 0.00 L (0.04-0.54) K/mm3 Baso # (Auto) 0.04 (0.01-0.08) K/mm3 Manual Slide Review Normal smear D-Dimer, Quantitative 1.40 H (0.19-0.50) mg/L Sodium 141 (136-145) mEq/L Potassium 4.2 (3.5-5.1) mEq/L Chloride 104 (98-107) mEq/L Carbon Dioxide 26 (21-32) mEq/L Anion Gap 15.2 H (5-15) BUN 21 H (7-18) mg/dL Creatinine 1.1 (0.7-1.3) mg/dL Est Cr Clr Drug Dosing 102.31 mL/min Estimated GFR (MDRD) > 60 (>60) mL/min BUN/Creatinine Ratio 19.1 H (14-18) Glucose 82 (70-99) mg/dL Calcium 8.7 (8.5-10.1) mg/dL Magnesium 2.2 (1.8-2.4) mg/dL Total Bilirubin 0.3 (0.2-1.0) mg/dL AST 49 H (15-37) U/L ALT 130 H (16-63) U/L Alkaline Phosphatase 57 (46-116) U/L C-Reactive Protein 2.9 H* (<1.0) mg/dL Total Protein 6.4 (6.4-8.2) g/dl Albumin 3.2 L (3.4-5.0) g/dl Globulin 3.2 gm/dL Albumin/Globulin Ratio 1.0 (1-2) Med Orders - Current: Current Medications Acetaminophen (Acetaminophen 325 Mg Tab) 650 mg PO Q4H PRN PRN Reason: Pain (Mild 1-3)/fever Last Admin: 02/09/21 12:32 Dose: 650 mg Documented by: Albuterol (Albuterol 6.7 Gm Inhaler) 0 gm INH ASDIRECTED PRN PRN Reason: Wheezing Albuterol/Ipratropium (Albuterol/Ipratropium 3.0-0.5 Mg/3 Ml Neb Soln) 3 ml NEB Q4HRRT PRN PRN Reason: Shortness of Breath Last Admin: 02/10/21 14:29 Dose: 3 ml Documented by: Ascorbic Acid (Ascorbic Acid 500 Mg Tab) 500 mg PO BID [facility] Last Admin: 02/11/21 08:56 Dose: 500 mg Documented by: Aspirin (Aspirin 325 Mg Tab.Ec) 325 mg PO DAILY [facility] Last Admin: 02/11/21 09:42 Dose: 325 mg Documented by: Benzonatate (Benzonatate 100 Mg Cap) 200 mg PO Q8H PRN PRN Reason: Cough Last Admin: 02/07/21 20:38 Dose: 200 mg Documented by: Cholecalciferol (Cholecalciferol (Vitamin D3) 5,000 Unit Cap) 5,000 unit PO DAILY [facility] Last Admin: 02/11/21 08:56 Dose: 5,000 unit Documented by: Dexamethasone (Dexamethasone 4 Mg Tab) 6 mg PO DAILY [facility] Stop: 02/16/21 09:01 Last Admin: 02/11/21 08:56 Dose: 6 mg Documented by: Enoxaparin Sodium (Enoxaparin 40 Mg/0.4 Ml Syringe) 40 mg SUBCUT DAILY [facility] Last Admin: 02/11/21 08:59 Dose: Not Given Documented by: Famotidine (Famotidine 20 Mg Tab) 20 mg PO BID [facility] Last Admin: 02/11/21 08:56 Dose: 20 mg Documented by: Guaifenesin (Guaifenesin 600 Mg Tab.Er) 600 mg PO BID [facility] Last Admin: 02/11/21 08:56 Dose: 600 mg Documented by: Guaifenesin/Dextromethorphan (Guaifenesin/Dextromethorphan 100-10 Mg/5 Ml Soln 5 Ml Cup) 10 ml PO TID@0700,1400,2100 [facility] Last Admin: 02/11/21 06:06 Dose: 10 ml Documented by: Remdesivir 100 mg/ Sodium (Chloride) 250 mls @ 250 mls/hr IV ONETIME ONE Stop: 02/11/21 12:59 Melatonin (Melatonin 3 Mg Tab) 6 mg PO BEDTIME PRN PRN Reason: Insomnia Last Admin: 02/10/21 21:19 Dose: 6 mg Documented by: Temazepam (Temazepam 15 Mg Cap) 15 mg PO BEDTIME PRN PRN Reason: Insomnia Last Admin: 02/09/21 22:24 Dose: 15 mg Documented by: Zinc Sulfate (Zinc Sulfate 220 Mg Cap) 220 mg PO DAILY [facility] Last Admin: 02/11/21 08:56 Dose: 220 mg Documented by: Discontinued Medications Dexamethasone (Dexamethasone 4 Mg Tab) 6 mg PO DAILY [facility] Stop: 02/16/21 09:01 Last Admin: 02/10/21 09:30 Dose: 6 mg Documented by: Dexamethasone (Dexamethasone 4 Mg Tab) 6 mg PO DAILY [facility] Stop: 02/16/21 09:01 Remdesivir 200 mg/ Sodium (Chloride) 250 mls @ 250 mls/hr IV ONETIME ONE Stop: 02/07/21 17:59 Last Admin: 02/07/21 18:00 Dose: 250 mls/hr Documented by: Remdesivir 100 mg/ Sodium (Chloride) 250 mls @ 250 mls/hr IV Q24H [facility] Stop: 02/11/21 17:59 Last Admin: 02/10/21 16:58 Dose: 250 mls/hr Documented by: Magnesium Sulfate 2 gm/ Premix 50 mls @ 25 mls/hr IV ONETIME ONE Stop: 02/08/21 17:59 Last Admin: 02/08/21 16:11 Dose: 25 mls/hr Documented by: Ibuprofen (Ibuprofen 600 Mg Tab) 600 mg PO ONETIME ONE Stop: 02/07/21 13:28 Last Admin: 02/07/21 13:45 Dose: 600 mg Documented by: Sodium Chloride (Sodium Chloride 0.9% 10 Ml Syringe) 10 ml FLUSH ASDIRECTED PRN PRN Reason: Keep Vein Open Last Admin: 02/07/21 14:05 Dose: 10 ml Documented by: - Exam Quality Assessment: Reports: DVT Prophylaxis. Denies: Supplemental Oxygen, Urine Catheter General: Reports: Alert, Oriented, Cooperative, No Acute Distress HEENT: Reports: Pupils Equal, Pupils Reactive, Mucous Membr. Moist/[place] Neck: Reports: Supple, Trachea Midline Lungs: Reports: Normal Respiratory Effort, Decreased Breath Sounds, Crackles Cardiovascular: Reports: Regular Rate, Regular Rhythm GI/Abdominal Exam: Normal Bowel Sounds, Soft, Non-Tender, No Distention (Male) Exam: Deferred Rectal (Males) Exam: Deferred Back Exam: Reports: Normal Inspection, Full Range of Motion Extremities: Normal Inspection, Normal Range of Motion, Non-Tender, No Pedal Edema, Normal Capillary Refill Skin: Reports: Warm, Dry, Intact Neurological: Reports: No New Focal Deficit Psy/Mental Status: Reports: Alert, Normal Affect, Normal Mood <Josias Haney - Last Filed: 02/11/21 13:39> Discharge Summary - Referral to Home Health Primary Care Physician: PCP None - Discharge Diagnosis/Problem(s) (1) Acute respiratory failure due to COVID-19 SNOMED Code(s): 176696372 ICD Code: U07.1 - COVID-19; J96.00 - ACUTE RESPIRATORY FAILURE, UNSP W HYPOXIA OR HYPERCAPNIA Status: Acute (2) Pneumonia due to severe acute respiratory syndrome coronavirus 2 (SARS-CoV-2) SNOMED Code(s): 548536596946027164 ICD Code: U07.1 - COVID-19; J12.82 - PNEUMONIA DUE TO CORONAVIRUS DISEASE 2019 Status: Acute Priority: High - Patient Summary/Data Consults: Consultations 02/08/21 11:06 Consult to Respiratory Therapy [Respiratory Care Assess and Treatment] [CONS] Routine - Patient Data Vitals - Most Recent: Last Vital Signs Temp 36.8 C 02/11/21 06:10 Pulse 77 02/11/21 06:10 Resp 18 02/11/21 06:10 BP 122/62 02/11/21 06:10 Pulse Ox 91 L 02/11/21 06:10 I&O - Last 24 hours: Intake & Output 02/10/21 02/11/21 02/11/21 22:59 06:59 14:59 Intake Total 1650 1200 Balance 1650 1200 Lab Results - Last 24 hrs: Laboratory Results - last 24 hr 02/11/21 02/11/21 02/11/21 Range/Units 07:10 07:10 07:10 WBC 9.21 H (4.23-9.07) K/mm3 RBC 5.01 (4.63-6.08) M/mm3 Hgb 15.0 (13.7-17.5) gm/dl Hct 45.5 (40.1-51.0) % MCV 90.8 (79.0-92.2) fl MCH 29.9 (25.7-32.2) pg MCHC 33.0 (32.2-35.5) g/dl RDW Std Deviation 42.2 (35.1-43.9) fL Plt Count 253 (163-337) K/mm3 MPV 11.2 (9.4-12.3) fl Neut % (Auto) 68.2 H (34.0-67.9) % Lymph % (Auto) 16.2 L (21.8-53.1) % [place] % (Auto) 11.8 (5.3-12.2) % Eos % (Auto) 0 L (0.8-7.0) Baso % (Auto) 0.4 (0.1-1.2) % Neut # (Auto) 6.28 H (1.78-5.38) K/mm3 Lymph # (Auto) 1.49 (1.32-3.57) K/mm3 [place] # (Auto) 1.09 H (0.30-0.82) K/mm3 Eos # (Auto) 0.00 L (0.04-0.54) K/mm3 Baso # (Auto) 0.04 (0.01-0.08) K/mm3 Manual Slide Review Normal smear D-Dimer, Quantitative 1.40 H (0.19-0.50) mg/L Sodium 141 (136-145) mEq/L Potassium 4.2 (3.5-5.1) mEq/L Chloride 104 (98-107) mEq/L Carbon Dioxide 26 (21-32) mEq/L Anion Gap 15.2 H (5-15) BUN 21 H (7-18) mg/dL Creatinine 1.1 (0.7-1.3) mg/dL Est Cr Clr Drug Dosing 102.31 mL/min Estimated GFR (MDRD) > 60 (>60) mL/min BUN/Creatinine Ratio 19.1 H (14-18) Glucose 82 (70-99) mg/dL Calcium 8.7 (8.5-10.1) mg/dL Magnesium 2.2 (1.8-2.4) mg/dL Total Bilirubin 0.3 (0.2-1.0) mg/dL AST 49 H (15-37) U/L ALT 130 H (16-63) U/L Alkaline Phosphatase 57 (46-116) U/L C-Reactive Protein 2.9 H* (<1.0) mg/dL Total Protein 6.4 (6.4-8.2) g/dl Albumin 3.2 L (3.4-5.0) g/dl Globulin 3.2 gm/dL Albumin/Globulin Ratio 1.0 (1-2) Med Orders - Current: Current Medications Discontinued Medications Acetaminophen (Acetaminophen 325 Mg Tab) 650 mg PO Q4H PRN PRN Reason: Pain (Mild 1-3)/fever Last Admin: 02/09/21 12:32 Dose: 650 mg Documented by: Albuterol (Albuterol 6.7 Gm Inhaler) 0 gm INH ASDIRECTED PRN PRN Reason: Wheezing Albuterol/Ipratropium (Albuterol/Ipratropium 3.0-0.5 Mg/3 Ml Neb Soln) 3 ml NEB Q4HRRT PRN PRN Reason: Shortness of Breath Last Admin: 02/10/21 14:29 Dose: 3 ml Documented by: Ascorbic Acid (Ascorbic Acid 500 Mg Tab) 500 mg PO BID [facility] Last Admin: 02/11/21 08:56 Dose: 500 mg Documented by: Aspirin (Aspirin 325 Mg Tab.Ec) 325 mg PO DAILY [facility] Last Admin: 02/11/21 09:42 Dose: 325 mg Documented by: Benzonatate (Benzonatate 100 Mg Cap) 200 mg PO Q8H PRN PRN Reason: Cough Last Admin: 02/07/21 20:38 Dose: 200 mg Documented by: Cholecalciferol (Cholecalciferol (Vitamin D3) 5,000 Unit Cap) 5,000 unit PO DAILY [facility] Last Admin: 02/11/21 08:56 Dose: 5,000 unit Documented by: Dexamethasone (Dexamethasone 4 Mg Tab) 6 mg PO DAILY [facility] Stop: 02/16/21 09:01 Last Admin: 02/10/21 09:30 Dose: 6 mg Documented by: Dexamethasone (Dexamethasone 4 Mg Tab) 6 mg PO DAILY [facility] Stop: 02/16/21 09:01 Dexamethasone (Dexamethasone 4 Mg Tab) 6 mg PO DAILY [facility] Stop: 02/16/21 09:01 Last Admin: 02/11/21 08:56 Dose: 6 mg Documented by: Enoxaparin Sodium (Enoxaparin 40 Mg/0.4 Ml Syringe) 40 mg SUBCUT DAILY [facility] Last Admin: 02/11/21 08:59 Dose: Not Given Documented by: Famotidine (Famotidine 20 Mg Tab) 20 mg PO BID [facility] Last Admin: 02/11/21 08:56 Dose: 20 mg Documented by: Guaifenesin (Guaifenesin 600 Mg Tab.Er) 600 mg PO BID [facility] Last Admin: 02/11/21 08:56 Dose: 600 mg Documented by: Guaifenesin/Dextromethorphan (Guaifenesin/Dextromethorphan 100-10 Mg/5 Ml Soln 5 Ml Cup) 10 ml PO TID@0700,1400,2100 [facility] Last Admin: 02/11/21 13:04 Dose: Not Given Documented by: Remdesivir 200 mg/ Sodium (Chloride) 250 mls @ 250 mls/hr IV ONETIME ONE Stop: 02/07/21 17:59 Last Admin: 02/07/21 18:00 Dose: 250 mls/hr Documented by: Remdesivir 100 mg/ Sodium (Chloride) 250 mls @ 250 mls/hr IV Q24H [facility] Stop: 02/11/21 17:59 Last Admin: 02/10/21 16:58 Dose: 250 mls/hr Documented by: Magnesium Sulfate 2 gm/ Premix 50 mls @ 25 mls/hr IV ONETIME ONE Stop: 02/08/21 17:59 Last Admin: 02/08/21 16:11 Dose: 25 mls/hr Documented by: Remdesivir 100 mg/ Sodium (Chloride) 250 mls @ 250 mls/hr IV ONETIME ONE Stop: 02/11/21 12:59 Last Admin: 02/11/21 11:19 Dose: 250 mls/hr Documented by: Ibuprofen (Ibuprofen 600 Mg Tab) 600 mg PO ONETIME ONE Stop: 02/07/21 13:28 Last Admin: 02/07/21 13:45 Dose: 600 mg Documented by: Melatonin (Melatonin 3 Mg Tab) 6 mg PO BEDTIME PRN PRN Reason: Insomnia Last Admin: 02/10/21 21:19 Dose: 6 mg Documented by: Sodium Chloride (Sodium Chloride 0.9% 10 Ml Syringe) 10 ml FLUSH ASDIRECTED PRN PRN Reason: Keep Vein Open Last Admin: 02/07/21 14:05 Dose: 10 ml Documented by: Temazepam (Temazepam 15 Mg Cap) 15 mg PO BEDTIME PRN PRN Reason: Insomnia Last Admin: 02/09/21 22:24 Dose: 15 mg Documented by: Zinc Sulfate (Zinc Sulfate 220 Mg Cap) 220 mg PO DAILY [facility] Last Admin: 02/11/21 08:56 Dose: 220 mg Documented by: - Free Text/Narrative Note: I have seen and examined the patient independently of MARYURI Peterson. I have discussed the case with him. I have also reviewed and agree with the plan of care as outlined by him. Please see orders.
[2021-02-11] MEDS ORDERED: REMDESIVIR 100 MG in Sodium Chloride 0.9% 250 ML IV ONE (12:00)
== END 2021-02-11 13:23 | disposition home or self-care (01) | DRG 137 ==
LOC: JD.ED 12:47 → JD.MS 15:37
PROVIDERS: ADMIT Family Medicine; ATTEND Family Medicine
PROC: 8E0ZXY6 Isolation (ICD-10-PCS; principal; 2021-02-07)
PROC: XW033E5 Introduction of Remdesivir Anti-infective into Peripheral Vein, Percutaneous Approach, New Technology Group 5 (ICD-10-PCS; 2021-02-07)
PROC: 3E0DX3Z Introduction of Anti-inflammatory into Mouth and Pharynx, External Approach (ICD-10-PCS; 2021-02-07)
DX: U07.1 COVID-19 (principal); J12.82 Pneumonia due to coronavirus disease 2019; E83.42 Hypomagnesemia; J96.01 Acute respiratory failure with hypoxia; R79.89 Other specified abnormal findings of blood chemistry; E55.9 Vitamin D deficiency, unspecified; G47.00 Insomnia, unspecified; H54.7 Unspecified visual loss; Z79.52 Long term (current) use of systemic steroids
CPT/HCPCS: 36415; 71045; 71045-26; 80053; 82306; 83735; 84100; 85025; 85379; 86140; 93005; 94640; 94667; 94668; 94762; 99223; 99232; 99239; A9270-GY; J1650; J3475; J7050; J7620-GY; J8540